=== PATIENT | female | born 1965 | race Caucasian/White ===

== ENCOUNTER → 2016-10-09 | Outpatient (REF) | payer BC ==
[~2016-10-09] MED LIST: ALLE60TA69 PO; ATOR1TAB21 PO; BIOT1TAB PO; CALC600T21 PO; FLUTISP; METF500T4 PO; METR0.00 TOP; OMEP40CA2 PO; VIVE0.02 TD
== END ==
LOC: M SFHCCLAY 07:58
PROVIDERS: ATTEND Family Medicine
DX: E78.00 Pure hypercholesterolemia, unspecified (principal)

== ENCOUNTER → 2016-11-29 | Outpatient (REF) | payer BC | LOC: M SFHCCLAY 09:23 | PROVIDERS: ATTEND Family Medicine | DX: E78.00 Pure hypercholesterolemia, unspecified (principal) ==

== ENCOUNTER → 2017-01-15 | Outpatient (REF) | payer BC ==
[2017-01-15 14:21] LABS: FREE T4 0.96 NG/DL (0.76-1.46)
== END ==
LOC: M SFHCCLAY 08:18
PROVIDERS: ATTEND Family Medicine
DX: E55.9 Vitamin D deficiency, unspecified (principal); E11.9 Type 2 diabetes mellitus without complications

== ENCOUNTER → 2017-04-17 | Outpatient (REF) | payer BC ==
[~2017-04-17] MED LIST changes: -CALC600T21 PO; +CALC600T60 PO
== END ==
LOC: M SFHCCLAY 08:36
PROVIDERS: ATTEND Family Medicine
DX: E11.9 Type 2 diabetes mellitus without complications (principal)

== ENCOUNTER → 2017-11-13 | Outpatient (REF) | payer BC ==
[2017-11-13 17:21] LABS: ANION GAP 6 MEQ/L (8-16); BLOOD UREA NITROGEN 19 MG/DL (7-18); CALCIUM LEVEL 8.9 MG/DL (8.5-10.1); CARBON DIOXIDE LEVEL 30 MEQ/L (21-32); CHLORIDE LEVEL 105 MEQ/L (98-107); GLOMERULAR FILTRATION RATE > 60.0 (>51); GLUCOSE, FASTING 98 MG/DL (70-100); POTASSIUM SERUM 4.4 MEQ/L (3.5-5.1); SODIUM LEVEL 141 MEQ/L (136-145)
[2017-11-13 19:29] LABS: ESTIMATED AVERAGE GLUCOSE 137 MG/DL (60-110); HEMOGLOBIN A1c 6.4 %
== END ==
LOC: M SFHCCLAY 11:32
DX: Z01.818 Encounter for other preprocedural examination (principal); E11.9 Type 2 diabetes mellitus without complications

== ENCOUNTER → 2018-04-14 | Outpatient (REF) | payer BC ==
[2018-04-14 11:55] LABS: ANION GAP 8 MEQ/L (8-16); BLOOD UREA NITROGEN 19 MG/DL (7-18); CALCIUM LEVEL 8.9 MG/DL (8.5-10.1); CARBON DIOXIDE LEVEL 29 MEQ/L (21-32); CHLORIDE LEVEL 104 MEQ/L (98-107); CHOLESTEROL LEVEL 163 MG/DL (<200); CHOLESTEROL RISK RATIO 4.075 (<5); CREATININE FOR GFR 0.98 MG/DL (0.55-1.30); GLOMERULAR FILTRATION RATE > 60.0 (>51); GLUCOSE, FASTING 146 MG/DL (70-100); HDL CHOLESTEROL 40 MG/DL (>40); LDL CHOLESTEROL 85.6 MG/DL (<100); NON-HDL-C 123 MG/DL; POTASSIUM SERUM 4.2 MEQ/L (3.5-5.1); SODIUM LEVEL 141 MEQ/L (136-145); TRIGLYCERIDES LEVEL 187 MG/DL (<150)
[2018-04-14 11:57] LABS: MALB URINE SIEMENS < 5.0 MG/L; MAU/CREAT RATIO 20.8 MCG/MG (0.0-30.0)
[2018-04-14 12:25] LABS: ESTIMATED AVERAGE GLUCOSE 134 MG/DL (60-110); HEMOGLOBIN A1c 6.3 %
== END ==
LOC: M SFHCCLAY 08:07
DX: Z01.818 Encounter for other preprocedural examination (principal); E11.9 Type 2 diabetes mellitus without complications; E78.5 Hyperlipidemia, unspecified
CPT/HCPCS: 83036

== ENCOUNTER → 2018-08-12 | Outpatient (REF) | payer BC ==
[2018-08-12 11:52] LABS: ALBUMIN 4.3 GM/DL (3.2-5.2); ANION GAP 9 MEQ/L (8-16); BLOOD UREA NITROGEN 18 MG/DL (7-18); CALCIUM LEVEL 9.2 MG/DL (8.5-10.1); CARBON DIOXIDE LEVEL 29 MEQ/L (21-32); CHLORIDE LEVEL 104 MEQ/L (98-107); CREATININE FOR GFR 0.85 MG/DL (0.55-1.30); GLOMERULAR FILTRATION RATE > 60.0 (>51); GLUCOSE, FASTING 118 MG/DL (70-100); PHOSPHORUS LEVEL 3.1 MG/DL (2.5-4.9); POTASSIUM SERUM 4.9 MEQ/L (3.5-5.1); SODIUM LEVEL 142 MEQ/L (136-145)
[2018-08-12 12:18] LABS: ESTIMATED AVERAGE GLUCOSE 128 MG/DL (60-110); HEMOGLOBIN A1c 6.1 %
== END ==
LOC: M SFHCCLAY 08:25
DX: E11.9 Type 2 diabetes mellitus without complications (principal)
CPT/HCPCS: 80069

== ENCOUNTER → 2019-02-23 | Outpatient (CLI) | payer BC ==
[~2019-02-23] MED LIST changes: +FLUT50SP12; -FLUTISP
--- NOTE | 2019-02-23 13:51 | REP ---
RIGHT WRIST SERIES: Two views. HISTORY: Right wrist pain. FINDINGS: AP and lateral views of the right wrist demonstrate overall normal mineralization. 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 Bones, joints and soft tissues are otherwise unremarkable. IMPRESSION: Spurring in the distal radial ulnar joint. No acute bony abnormality.
== END ==
LOC: M CLY 10:48
PROVIDERS: ATTEND Family Medicine
DX: M19.031 Primary osteoarthritis, right wrist (principal); E11.9 Type 2 diabetes mellitus without complications

== ENCOUNTER → 2019-06-02 | Outpatient (REF) | payer BC ==
[~2019-06-02] MED LIST changes: +METF-791 PO; -METF500T4 PO
[2019-06-02 11:34] LABS: ALT/SGPT 35 U/L (12-78); BLOOD UREA NITROGEN 18 MG/DL (7-18); CALCIUM LEVEL 9.2 MG/DL (8.5-10.1); CARBON DIOXIDE LEVEL 29 MEQ/L (21-32); CHLORIDE LEVEL 105 MEQ/L (98-107); CHOLESTEROL LEVEL 146 MG/DL (<200); CHOLESTEROL RISK RATIO 3.173 (<5); CREATININE FOR GFR 0.79 MG/DL (0.55-1.30); GLOMERULAR FILTRATION RATE > 60.0 (>51); GLUCOSE, FASTING 128 MG/DL (70-100); HDL CHOLESTEROL 46 MG/DL (>40); LDL CHOLESTEROL 76 MG/DL (<100); NON-HDL-C 100 MG/DL; POTASSIUM SERUM 4.5 MEQ/L (3.5-5.1); SODIUM LEVEL 143 MEQ/L (136-145); TRIGLYCERIDES LEVEL 121 MG/DL (<150)
[2019-06-02 11:46] LABS: HEMOGLOBIN A1c 6.1 %
== END ==
LOC: M SFHCCLAY 07:52
PROVIDERS: ATTEND Family Medicine
DX: E11.9 Type 2 diabetes mellitus without complications (principal)

== ENCOUNTER → 2019-11-22 | Outpatient (REF) | payer BC ==
[~2019-11-22] MED LIST changes: -OMEP40CA2 PO; +OMEP40CA97 PO
[2019-11-22 11:42] LABS: ALT/SGPT 37 U/L (12-78); BLOOD UREA NITROGEN 19 MG/DL (7-18); CARBON DIOXIDE LEVEL 31 MEQ/L (21-32); CHLORIDE LEVEL 105 MEQ/L (98-107); CHOLESTEROL LEVEL 204 MG/DL (<200); CHOLESTEROL RISK RATIO 4.744 (<5); CREATININE FOR GFR 0.83 MG/DL (0.55-1.30); FREE T4 1.02 NG/DL (0.76-1.46); GLOMERULAR FILTRATION RATE > 60.0 (>51); GLUCOSE, FASTING 129 MG/DL (70-100); HDL CHOLESTEROL 43 MG/DL (>40); LDL CHOLESTEROL 131 MG/DL (<100); NON-HDL-C 161 MG/DL; SODIUM LEVEL 140 MEQ/L (136-145); TRIGLYCERIDES LEVEL 150 MG/DL (<150)
[2019-11-22 13:44] LABS: HEMOGLOBIN A1c 6.4 %
== END ==
LOC: M SFHCCLAY 08:33
PROVIDERS: ATTEND Family Medicine
DX: E11.9 Type 2 diabetes mellitus without complications (principal); G56.02 Carpal tunnel syndrome, left upper limb; E78.5 Hyperlipidemia, unspecified

== ENCOUNTER → 2020-01-13 | Outpatient (REF) | payer OTHER ==
[2020-01-13 12:48] LABS: CORTISOL AM 21.1 UG/DL (4.3-22.4); FREE T4 0.94 NG/DL (0.76-1.46); THYROID STIMULATING HORMONE 2.85 uIU/ML (0.358-3.740); TOTAL 25(OH) VITAMIN D 20.5 NG/ML (30.0-100.0)
[2020-01-14 08:04] LABS: THYROID PEROXIDASE ANTIBODY 31.7 U/ML (<60.0)
== END ==
LOC: M LABDRAW1 11:43
PROVIDERS: ATTEND Nurse Practitioner Family
DX: E04.9 Nontoxic goiter, unspecified (principal); L65.9 Nonscarring hair loss, unspecified; E55.9 Vitamin D deficiency, unspecified

== ENCOUNTER → 2020-05-17 | Outpatient (REF) | payer OTHER ==
[~2020-05-17] MED LIST changes: -METF-791 PO; +METF-838 PO
[2020-05-17 20:50] LABS: HEMOGLOBIN A1c 6.3 %
== END ==
LOC: M LABDRAWC 15:44
PROVIDERS: ATTEND Family Medicine
DX: E11.9 Type 2 diabetes mellitus without complications (principal); E55.9 Vitamin D deficiency, unspecified

== ENCOUNTER → 2020-06-21 | Outpatient (REF) | payer OTHER ==
[2020-06-21 14:18] LABS: AMORPHOUS SEDIMENT SMALL (NEGATIVE); APPEARANCE, URINE CLOUDY (CLEAR); BACTERIA, URINE AUTO NEGATIVE (NEGATIVE); BILIRUBIN, URINE AUTO NEGATIVE (NEGATIVE); BLOOD, URINE BLOOD NEGATIVE (NEGATIVE); COLOR, URINE AMBER (YELLOW); GLUCOSE, URINE (UA) AUTO NEGATIVE (NEGATIVE); KETONE, URINE AUTO NEGATIVE (NEGATIVE); LEUKOCYTE ESTERASE, URINE AUTO NEGATIVE (NEGATIVE); NITRITE, URINE AUTO NEGATIVE (NEGATIVE); PROTEIN, URINE AUTO NEGATIVE (NEGATIVE); RBC, URINE AUTO 0 /HPF (0-3); SPECIFIC GRAVITY URINE AUTO 1.014 (1.002-1.035); SQUAMOUS EPITHELIAL CELL UR AU 0 /HPF (0-6); UROBILINOGEN, URINE AUTO 0.2 mg/dL (0.0-2.0); WBC, URINE AUTO 0 /HPF (0-3)
== END ==
LOC: M LAB REF 13:16
PROVIDERS: ATTEND Physician Assistant
DX: N39.0 Urinary tract infection, site not specified (principal)

== ENCOUNTER → 2020-09-20 | Outpatient (REF) | payer OTHER | LOC: M LABDRAWC 13:19 | PROVIDERS: ATTEND Family Medicine | DX: E11.9 Type 2 diabetes mellitus without complications (principal); I10 Essential (primary) hypertension ==

== ENCOUNTER → 2020-11-01 | Outpatient (CLI) | payer OTHER | LOC: M LABSMTC 13:34 | PROVIDERS: ATTEND Family Medicine | DX: Z20.822 Contact with and (suspected) exposure to COVID-19 (principal) ==

== ENCOUNTER → 2021-08-29 | Outpatient (CLI) | payer OTHER ==
[~2021-08-29] MED LIST changes: +BIMA01SOL OU; +CENT1TAB9 PO; +CHLO125TA PO; +ESTR1TD TD; +FLUT15.820; +METR0.7533 TOP; +OMEP40CA4 PO; -OMEP40CA97 PO; +VITA1CAP14 PO
== END ==
LOC: M LABSMTC 09:54
PROVIDERS: ATTEND Anesthesiology
DX: Z01.818 Encounter for other preprocedural examination (principal); Z11.52 Encounter for screening for COVID-19

== ENCOUNTER 2021-09-03 10:46 | Day surgery (SDC) | payer OTHER ==
[~2021-09-03] VITALS: Ht 154.9 cm; Wt 75.7 kg
[~2021-09-03 10:46] MED LIST changes: +LIDOCAINE 2% 100MG/5ML SDV (FOR ANES.) As Ordered ONE; +NS 1,000 ML IV ONE; +propofoL 200 MG/20 ML VIAL As Ordered ONE
--- OUTSIDE RECORDS SUMMARY | 2021-09-03 10:52 | CCD ---
Author Author Julien Flynn MD [facility] Organization Julien Flynn MD [facility] Address [address] [address] Phone Care Team Providers Care Assistant Professor Of Communication Name Role Phone Jeffery Allen Unavailable [phone] Rina DYER, Julien COATES Unavailable [phone] Jeff Lira MD PP [phone] Reason for Referral No Reason for Referral Recorded Problems Includes: Active, inactive, and resolved Problems All Visits Onset Date - Time Resolved Date - Time Provider Co ndition Status Refractive Error - Myopia Left 01/05/2019 - 12:00AM Dane Welsh DO Active Refractive Error - Myopia Bilateral 08/10/2018 - 12:00AM Kevyn Welsh DO Inactive Taking Medication For Diabetes Long-term Use of Oral H ypoglycemics 07/16/2018 - 12:00AM Julien Flynn MD, AMINATA Active Diabetes Mellitus Type 2 - Uncomplicated, Controlled 07/16/2018 - 12:00AM Julien Flynn MD, AMINATA Active Retinopathy Hypertensive Both Eyes 07/16/2018 - 12:00AM Julien Flynn MD, FACS Active Dry Eye Syndrome Both Eyes 07/16/2018 - 12:00AM Julien Flynn MD, FACS Active Vitreous Disorders Degeneration 07/16/2018 - 12:00AM Julien Flynn MD, FACS Active Plan of Treatment Future Appointments Date Time Location Provider REFRACTION 08/20/2021 8:00AM Julien Flynn MD [facility] 24-2 08/20/2021 8:00AM [facility] WITH PACHYMETRY 08/20/2021 8:00AM [facility] Assessments Includes: Assessments for all patient encounters Findings Encounter Date Dry eye syndrome of both eyes 1 Year Follow-Up with Herve Flynn MD, FACS 07/21/2020 Hypertensive retinopathy of both eyes 1 Year Follow-Up with Julien Flynn MD, FACS 07/21/2020 Long-term use of oral hypoglycemics 1 Year Follow-Up w [facility] Julien Flynn MD, FACS 07/21/2020 Type 2 diabetes mellitus - uncomplicated, controlled 1 Year Follow-Up with Julien Flynn MD, FACS 07/21/2020 Vitreous degeneration 1 Year Follow-Up with Julien joya MD, FACS 07/21/2020 Hypertensive retinopathy of both eyes 1 Year Follow-Up with Julien Flynn MD, FACS 07/23/2019 Long-term use of oral hypoglycemics 1 Year Follow-Up w [facility] Julien Flynn MD, FACS 07/23/2019 Type 2 diabetes mellitus - uncomplicated, controlled 1 Year Follow-Up with Julien Flynn MD, FACS 07/23/2019 Left myopia 3 Month Follow-Up with Kevyn Welsh DO 01/05/2019 Bilateral myopia PRE OP VISIT with Kevyn Welsh DO 1 10/24/2017 Bilateral myopia EVALUATION FOR PRK SURGERY with Kevyn Welsh DO 08/12/2018 Bilateral myopia LASER EVALUATION with Kevyn Welsh DO 08/07/2018 Dry eye syndrome of both eyes NEW PATIENT WITH REFERRA L with Julien Flynn MD, FACS 07/16/2018 Hypertensive retinopathy of both eyes NEW PATIENT WITH REFERRAL with Julien Flynn MD, FACS 07/16/2018 Long-term use of oral hypoglycemics NEW PATIENT WITH R EFERRAL with Julien Flynn MD, FACS 07/16/2018 Type 2 diabetes mellitus - uncomplicated, controlled N EW PATIENT WITH REFERRAL with Julien Flynn MD, FACS 07/16/2018 Vitreous degeneration NEW PATIENT WITH REFERRAL [facility] Julien Flynn MD, FACS 07/16/2018 Instructions Instructions not supported for this document typeNo Instructions Recorded Medical Equipment - Implanted Devices Includes: Current and historical DevicesNo Medical Equipment Recorded Medications Includes: Current and historical Medications Current Medications (continue as prescribed) Vitamin D3 250 MCG (79700 UT) Oral Tablet 07/21/2020 Provider: Diagnosis: NexIUM 24HR 20 MG Oral Capsule Delayed Release 07/21/2020 Provider: Diagnosis: Atorvastatin 10 mg Oral Tablet 07/21/2020 Provider: Diagnosis: Vivelle-Dot 0.05 MG/24HR Transdermal Patch Twice Weekly 06/30 Provider: Diagnosis: one patch twice a week Phentermine HCl 30 MG Oral Capsule 07/21/2020 Provi eligio: Diagnosis: B Complex Oral Tablet 07/21/2020 Provider: Diagnosis: Relacore Oral Tablet 07/16/2018 Provider: Diagnosis: Centrum Silver Oral Tablet 07/16/2018 Provider: Diagnosis: Fluticasone Propionate 50MCG/ACT Nasal Suspension 07/16/2018 Provider: Diagnosis: 1 spray each nostril Loratadine D Oral Tablet 07/16/2018 Provider: Diagnosis: Lutein 10MG Oral Tablet 07/16/2018 Provider: Diagnosis: Zantac 150MG Oral Tablet 07/16/2018 Provider: Diagnosis: Pravastatin Sodium 40MG Oral Tablet 07/16/2018 Prov ider: Diagnosis: MetFORMIN HCl ER 500MG Oral Tablet Extended Release 24 Hour 07/16/2018 Provider: Diagnosis: Past Medications on file Pred Forte 1% Ophthalmic Suspension 11/02/2018 - 07/23/2019 Provider: Kevyn Welsh DO Diagnosis: one drop two times a day in the right ey e until 11/06 then one drop once a day in the right eye for 2 weeks then stop Vigamox 0.5% Ophthalmic Solution 08/27/2018 - 09/01/2018 Pro vider: Kevyn Welsh DO Diagnosis: one drop four times a day in the right eye for 1 week Valium 2MG Oral Tablet 08/24/2018 - 09/01/2018 Provider: Kevyn Welsh DO Diagnosis: 1/2 tablet take 30 minutes prior to procedure Tylenol with Codeine #3 300-30MG Oral Tablet 08/24/2018 - Provider: Kevyn Welsh DO Diagnosis: one tablet every 4 hours as needed for pain Lyrica 100MG Oral Capsule 08/24/2018 - 09/01/2018 Provider: Kevyn Welsh DO Diagnosis: 1 tablet three times a day starting 2 days before Vigamox 0.5% Ophthalmic Solution 08/24/2018 - 08/27/2018 Pro vider: Kevyn Welsh DO Diagnosis: one drop four times a day in the right eye Pred Forte 1% Ophthalmic Suspension 08/24/2018 - 11/02/2018 Provider: Kevyn Welsh DO Diagnosis: one drop eight times a day in the right eye Medications Administered Includes: Administered Medications in patient's chartNo Administered Medications Recorded Vital Signs Includes: Vital Signs from 08/20/2020 through 08/20/2021No Vital Signs Recorded For Specified Dates Results Includes: Results from 08/20/2020 through 08/20/2021No Results Recorded For Specified Dates History of Present Illness History of Present Illness not supported for this document typeNo History of Present Illness Recorded Social History Description Last Updated Alcohol 07/23/2019 No tobacco use 07/23/2019 Not using drugs 07/23/2019 Previous smoking history 07/23/2019 Smoking status : Former smoker 07/23/2019 Procedures and Surgical History Surgical History Last Updated Surgical / procedural history Partial H ysterectomy 1990, Ovarian Cyst removal 1994 and 2002, Kidney Stone removal 2003 and 2008, Total Hysterectomy 2014 and 2017, Blepharoplasty on both lids in 2014 with a lower eye laser procedure - Dr. Keene. Carpel Tunnel sx-07/20/2019 07/23/2019 History of LASIK surgery of the right cornea PRK OD b y Dr. Welsh 08/26/18 07/23/2019 Medical History Includes: Medical History in patient's chart Description Last Updated History of the retina was abnormal 07/23/2019 07/21/20 20 Recent change in medical history Carpel Tunnel Sx 07/23/2019 History of diabetes mellitus Her last A1c 6.1 FBS simon s not check 07/23/2019 History of hyperlipidemia 07/23/2019 Reported medical history Gestational Diabetes 1985+19 89, 07/23/2019 Currently wearing eyeglasses 07/23/2019 History of fundoscopic exam through dilated pupils was performed 07/16/2018 07/23/2019 Wearing contact lenses 07/23/2019 Family History Includes: Family History in patient's chart Description Last Updated Fraternal history of hypertension 07/23/2019 Maternal history of arthritis 07/23/2019 Maternal history of cataract 07/23/2019 Maternal history of diabetes mellitus 07/23/2019 Maternal history of glaucoma 07/23/2019 Maternal history of heart disease 07/23/2019 Maternal history of thyroid disorder 07/23/2019 Paternal history of family history of cancer 9 Paternal history of heart disease 07/23/2019 Paternal history of hypertension 07/23/2019 Sororal history of arthritis 07/23/2019 Sororal history of family history of cancer 07/23/2019 Sororal history of glaucoma 07/23/2019 Sororal history of thyroid disorder 07/23/2019 Review of Systems Review of Systems not supported for this document typeNo Review of Systems Recorded Mental Status Mental Status not supported for this document typeNo Mental Status Recorded Functional Status Functional Status not supported for this document typeNo Functional Status Recorded Physical Exam Physical Exam not supported for this document typeNo Physical Exam Recorded Immunizations Includes: Immunizations in patient's chartNo Immunizations Recorded Allergies Includes: Active, inactive, and resolved AllergiesNo Known Allergies Encounters Includes: Encounters from 08/20/2020 through 08/20/2021 Encounter Provider Location Date Check-In Time Check-Out Time D iagnosis 1 Year Follow-Up Julien Flynn MD, FACS Julien Bonilla [facility] 07/17/2021 8:03AM 9:14AM Insurance Includes: Active Insurance Policies Plan Name Member ID Group # Subscriber Relationship Effective Da con 1 - [employer] /[employer] NEEDED [id number] Martha Diggs Self Advance Directives Includes: Current Advance DirectivesNo Advance Directives Recorded Health Concerns Includes: Active Health ConcernsNo Active Health Concerns Recorded Goals Includes: Active GoalsNo Active Goals Recorded Interventions Includes: Interventions for active GoalsNo Interventions Recorded Evaluations & Outcomes Includes: Evaluations & Outcomes for active GoalsNo Outcomes Recorded
--- OUTSIDE RECORDS SUMMARY | 2021-09-03 10:52 | CCD ---
Author Author Julien Flynn MD [facility] Organization Julien Flynn MD [facility] Address [address] [address] Phone Care Team Providers Care Cuff Turner Name Role Phone Jeffery Allen Unavailable [phone] Rina DYER, AMINATA, Julien Wang Unavailable [phone] Jeff Lira MD PP [phone] Reason for Referral No Reason for Referral [...] ypoglycemics 07/16/2018 - 12:00AM Julien Flynn MD, FACS Active Diabetes Mellitus Type 2 - Uncomplicated, Controlled 07/16/2018 - 12:00AM Julien Flynn MD, FACS Active Retinopathy Hypertensive Both Eyes 07/16/2018 - 12:00AM Julien Flynn MD, FACS Active Dry Eye Syndrome Both Eyes 07/16/2018 - 12:00AM Julien Flynn MD, FACS Active Vitreous Disorders Degeneration 07/16/2018 - 12:00AM Julien Flynn MD, FACS Active Plan of Treatment Future Appointments Date Time Location Provider 1 Year Follow-Up 07/17/2021 8:00AM Julien Flynn MD [facility] Julien Flynn MD, FACS Assessments Includes: Assessments for all patient encounters Findings Encounter Date Dry eye syndrome of both eyes 1 Year Follow-Up with Herve Flynn MD, FACS 07/21/2020 Hypertensive retinopathy of both eyes 1 Year Follow-Up with Julien Flynn MD, FACS 07/21/2020 Long-term use of oral hypoglycemics 1 Year Follow-Up w [facility] Julien Flynn MD, FACS 07/21/2020 Type 2 diabetes mellitus - uncomplicated, controlled 1 Year Follow-Up with Julien Flynn MD, FACS 07/21/2020 Vitreous degeneration 1 Year Follow-Up with Julien joya MD, FACS 07/21/2020 Hypertensive retinopathy of both eyes 1 Year Follow-Up with Julien Flynn MD, FACS 07/23/2019 Long-term use of oral hypoglycemics 1 Year Follow-Up w [facility] Julien Flynn MD, FACS 07/23/2019 Type 2 [...] WITH REFERRA L with Julien Flynn MD[facility] 07/16/2018 Hypertensive retinopathy of both eyes NEW PATIENT WITH REFERRAL with Julien Flynn MD, FACS 07/16/2018 Long-term use of oral hypoglycemics NEW PATIENT WITH R EFERRAL with Julien Flynn MD, FACS 07/16/2018 Type 2 diabetes mellitus - uncomplicated, controlled N EW PATIENT WITH REFERRAL with Julien Flynn MD, FACS 07/16/2018 Vitreous degeneration NEW PATIENT WITH REFERRAL wi Julien Flynn MD, FACS 07/16/2018 Instructions Instructions not supported for this document typeNo Instructions Recorded Medical Equipment - Implanted Devices Includes: Current and historical DevicesNo Medical Equipment Recorded Medications Includes: Current and historical Medications Current Medications (continue as prescribed) Vitamin D3 250 MCG (22445 UT) Oral Tablet 07/21/2020 Provider: Diagnosis: NexIUM [...] Recorded Vital Signs Includes: Vital Signs from 06/26/2020 through 06/26/2021No Vital Signs Recorded For Specified Dates Results Includes: Results from 06/26/2020 through 06/26/2021No Results Recorded For Specified Dates History of Present Illness History of Present Illness not supported for this document typeNo History of Present Illness Recorded Social History Description Last Updated No consumption of alcohol 07/21/2020 No tobacco use 07/21/2020 Not using drugs 07/21/2020 Previous smoking history 07/21/2020 Smoking status : Former smoker 07/21/2020 Procedures and Surgical History Includes: Procedures from 06/26/2020 through 06/26/2021 Procedures Code Diagnosis Performing Provider Service Location Service Date Intermediate Eye Exam Established Patient [address] alf (current) use of oral hypoglycemic drugs Julien Flynn MD, FACS Julien Flynn MD [facility] 07/21/2020 Surgical History Last Updated History of LASIK surgery of the right cornea PRK OD b y Dr. Welsh 08/26/18 07/21/2020 Surgical / procedural history Partial H ysterectomy 1990, Ovarian Cyst removal 1994 and 2002, Kidney Stone removal 2003 and 2008, Total Hysterectomy 2014 and 2017, Blepharoplasty on both lids in 2014 with a lower eye laser procedure - Dr. Keene. Carpel Tunnel sx-07/20/2019 07/21/2020 Medical History Includes: Medical History in patient's chart Description Last Updated History of diabetes mellitus Her last A 1c 6.[address] Lira in May FBS: 106 two weeks ago 07/21/2020 No recent change in medical history 07/21/2020 History of the retina was abnormal 07/23/2019 07/21/20 20 Currently wearing eyeglasses 07/21/2020 History of hyperlipidemia 07/21/2020 Family History Includes: Family History in patient's chart Description Last Updated Fraternal history of hypertension 07/21/2020 Maternal history of arthritis 07/21/2020 Maternal history of cataract 07/21/2020 Maternal history of diabetes mellitus 07/21/2020 Maternal history of glaucoma 07/21/2020 Maternal history of heart disease 07/21/2020 Maternal history of thyroid disorder 07/21/2020 Paternal history of family history of cancer 0 Paternal history of heart disease 07/21/2020 Paternal history of hypertension 07/21/2020 Sororal history of arthritis 07/21/2020 Sororal history of family history of cancer 07/21/2020 Sororal history of glaucoma 07/21/2020 Sororal history of thyroid disorder 07/21/2020 Review of Systems Review of Systems not supported for this document typeNo Review of Systems Recorded Mental Status Mental Status not supported for this document type Description Oriented to time, place, and person Functional Status Functional Status not supported for this document typeNo Functional Status Recorded Physical Exam Physical Exam not supported for this document typeNo Physical Exam Recorded Immunizations Includes: Immunizations in patient's chartNo Immunizations Recorded Allergies Includes: Active, inactive, and resolved AllergiesNo Known Allergies Encounters Includes: Encounters from 06/26/2020 through 06/26/2021 Encounter Provider Location Date Check-In Time Check-Out Time D iagnosis 1 Year Follow-Up Julien Flynn MD, FACS Julien Bonilla [facility] 07/21/2020 8:03AM 9:03AM Taking Medication Fo r Diabetes Long-term Use of Oral Hypoglycemics, Diabetes Mellitus Type 2 - Uncomplicated, Controlled, Retinopathy Hypertensive Both Eyes, Dry Eye Syndrome Both Eyes, Vitreous Disorders Degeneration Insurance Includes: Active Insurance Policies Plan Name Member ID Group # Subscriber Relationship Effective Da con 1 - [employer] /PRIOR [employer] NEEDED [id number] Martha Diggs Self Advance Directives Includes: Current Advance DirectivesNo Advance Directives Recorded Health Concerns Includes: Active Health ConcernsNo Active Health Concerns Recorded Goals Includes: Active GoalsNo Active Goals Recorded Interventions Includes: Interventions for active GoalsNo Interventions Recorded Evaluations & Outcomes Includes: Evaluations & Outcomes for active GoalsNo Outcomes Recorded
--- OUTSIDE RECORDS SUMMARY | 2021-09-03 10:52 | CCD ---
Author Author [facility] Organization [facility] Address Unknown Phone Unavailable Care Team Providers Care General Activities Therapist Name Role Phone Jeff Lira Unavailable PROBLEMS Type Condition ICD9-CM Code [id number] Code Onset Dates Condition S tatus W/U Status Risk SNOMED Code Notes Problem Needs flu shot Z23 Active confirmed 05526 3001 Problem Other and unspecified hyperlipidemia E78.5 Act lashonda confirmed 28562570 Problem Hypovitaminosis D E55.9 Active confirmed 34 156676 Problem Chronic GERD K21.9 Active confirmed 2850106 09 Problem Chronic allergic rhinitis, unspecified s easonality, unspecified trigger J30.9 Active confirmed 28676959 Problem Carpal tunnel syndrome of left wrist G56.02 Act lashonda confirmed [id number] Problem Diabetes mellitus E11.9 Active confirmed 73 721715 Problem Essential (primary) hypertension I10 Active conf irmed 66607069 Problem Family history of colon cancer Z80.0 Active confir med 889978205 Problem Rectocele N81.6 Active confirmed 086447593 Problem BMI 31.0-31.9,adult Z68.31 Active confirmed 206492648 Problem Radiculopathy affecting upper extremity M54.10 Active confirmed 34486485 Problem Carpal tunnel syndrome of right wrist G56.01 Ac tive confirmed [id number] ALLERGIES No Known Allergies ENCOUNTERS from 1965 to 2021-08-22 Encounter Location Date Provider Diagnosis [facility] [phone] [place] [address] Jul, Jfef Lira Facial discomfort R51.9 IMMUNIZATIONS Vaccine Route Administration Date Status Influenza 18 yrs & older Flublok IM Intramuscular Aug 12, 2018 Administered Hepatitis B 0.5mL HEPLISAV-B IM Intramuscular March 16, 2019 Ad ministered Hepatitis B 0.5mL HEPLISAV-B IM Intramuscular February 12, 2019 Ad ministered Hepatitis A Adult 1.0mL Havrix IM Intramuscular January 19, 2021 Administered Pneumococcal Adult 0.5mL Pneumovax 23 IM Intramuscular Aug 09 014 Administered TDAP 0.5mL (Boostrix) IM Intramuscular January 15, 2017 Administe red Influenza 18 yrs & older Flublok IM Intramuscular Aug 02, 2019 Administered Influenza 6mo & up Fluzone IM Intramuscular Aug 07, 2017 Admi nistered Influenza Pharmacy Given Unknown Aug 16, 2020 Adminis tered Influenza 6mo & up Fluzone IM Intramuscular Jun 19, 2016 Admi nistered Influenza 6mo & up Fluzone IM Intramuscular Aug 01, 2015 Admi nistered SOCIAL HISTORY Tobacco Use: Social History Observation Description Date Details (start date - stop date) Never Smoker Sex Assigned At : Social History Observation Description Sex Assigned At Unknown Audit Question Answer Notes Total Score: 1 Interpretation: Alcohol Education Quaker: Question Answer Notes Quaker No islam beliefs that would impact health care. Sexual Hx: Question Answer Notes Had sex in the last 12 months (vaginal, oral, or anal)? Yes LMP: hysterectomy Have you ever had an STD? No with Men only Use protection? No Drug and Alcohol Question Answer Notes Total Score: 0 Interpretation: No problems reported Alcohol Screening: Question Answer Notes Did you have a drink containing alcohol in the past year? Ye s Points 1 Interpretation Negative How often did you have six or more drinks on one occas ion in the past year? Never (0 points) How many drinks did you have on a typica l day when you were drinking in the past year? 1 or 2 (0 points) How often did you have a drink containing alcohol in t he past year? Monthly or less (1 point) BMI Care Goal Follow-Up Question Answer Notes Above Normal BMI Follow-Up BMI=30.93 Tobacco Use: Question Answer Notes Are you a: never smoker former smoker quit a ge 23 REASON FOR REFERRAL from 1963 to 2021-08-22 Reason patient with discomfort refe rrable to sinus area please eval and treat. Diagnosis 1 Facial discomfort (R51.9) Referral Organization [facility] Referring Provider First Name Jeff Referring Provider Last Name Pankaj Referring Provider Specialty Family Medicine Referred Provider Tyler BAILEY Referred Provider Specialty Otolaryngology Referral Priority Routine VITAL SIGNS No information MEDICATIONS Medication SIG (Take, Route, Frequency, Duration) Notes Start Da te End Date Status OneTouch Test - as directed In Vitro, E11.Jul, Active Glucostix freestyle lite --- subcutaneously bid prn- E11.9 Nov, Active Estradiol 0.1 MG/24HR 1 patch to skin Transdermal Two times a Week for 90 day(s) Jul, Active Omeprazole 40 MG 1 capsule 30 minutes before morning meal Orally On a day Active Chlorthalidone 25 MG 1 tablet in the morning with food Orally Once a day for 90 day(s) Feb, Active B Complex - as directed Orally Activ e CoursePeer Basic System w/Device 1 .Jul, Active Motrin Active Atorvastatin Calcium 10 MG 1 tablet Orally Once a day for 90 Active metFORMIN HCl ER 500 MG 2 tablet Orally bid for 90 Active Flonase 50 MCG/DOSE 1 spray in each nostril Nasally Once a day prn Active Alcohol Preps --- --- --- as directed Nov, Active Loratadine-D 12HR 5-120 MG 1 tablet as needed Orally every 12 hrs Active Lancets freestyle lite ---- subcutaneously as directedBID- Active May Use - fully automatic bp cuff Dx I10 Aug, Active Liquid Tears Active Biotin Ultra Strength Act lashonda Centrum Silver 50+Women - as directed Orally Active Glucometer ---- as directed ---- as directed Nov, Active PROCEDURES No Information RESULTS No Results REASON FOR VISIT Referral to ENT Provider MEDICAL (GENERAL) HISTORY Type Description Date Medical History Hx kidney Stone Medical History GERD Medical History Post menopausal Medical History HISTORY OF GESTATIONAL DIABETES Medical History Family history of diabetes mellitus Medical History Family history of other cardiovascular d iseases Medical History ELEVATED LIVER FUNCTION NEG HEP SCRN- Medical History DM type 2 Medical History Esophageal reflux Medical History Seasonal/ Enviromental Allergies Surgical History Child x 2 1984,1988 Surgical History Hysterectomy 1991 Surgical History Ovarian cyst 09/2010 Surgical History Left Ureteroscopy/laser Lithotripsy/JJ s tent placement x2 2004 Surgical History ESWL Surgical History Kidney stone 11/2010 Surgical History ANTERIOR POSTERIOR REPAIR Surgical History upper and lower BLEPH 02/2015 Surgical History posterior repair 10/2017 Surgical History eye surgery 08/15/2018 Surgical History Carpal tunnel right 07/20/2019 Hospitalization History Surgery Hospitalization History childbirth Goals Section No Information Health Concerns No Information MEDICAL EQUIPMENT No Information MENTAL STATUS No Information FUNCTIONAL STATUS No Information ASSESSMENTS Encounter Date Diagnosis Assessment Notes Treatment Notes Treatm ent Clinical Notes Jul, Facial discomfort (ICD-10 - R51.9) PLAN OF TREATMENT Medication Medication Name Sig Start Date Stop Date Estradiol 0.1 MG/24HR 1 patch to skin Transdermal Two times a Week for 90 day(s) Jul, Referrals Referral Date Details patient with discomfort refe rrable to sinus area please eval and treat., Tyler P ENT Next Appt Details Provider Name:Jeff Zamorah, 2021-09-20 01 :00:00 PM, [address] , , [place], [address], Insurance Providers Payer Name Payer Address Payer Phone Insured Name Patient Relati onship to Insured Coverage Start Date Coverage End Date [facility] [address] [address] [facility] [id number] [place]AR[place]
--- OUTSIDE RECORDS SUMMARY | 2021-09-03 10:52 | CCD ---
Author Author [facility] Organization 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 Role Phone Oren Beal Unavailable PROBLEMS Type Condition ICD9-CM Code [id number] Code Onset Dates Condition S tatus W/U Status Risk SNOMED Code Notes Problem Needs flu shot Z23 Active confirmed 65783 3001 Problem Other and unspecified hyperlipidemia E78.5 Act lashonda confirmed 57709578 Problem Hypovitaminosis D E55.9 Active confirmed 34 111637 Problem Chronic GERD K21.9 Active confirmed 5060166 09 Problem Chronic allergic rhinitis, unspecified s easonality, unspecified trigger J30.9 Active confirmed 95358517 Problem Carpal tunnel syndrome of left wrist G56.02 Act lashonda confirmed 708467679208924 Problem Diabetes mellitus E11.9 Active confirmed 73 440390 Problem Essential (primary) hypertension I10 Active conf irmed 01188976 Problem Family history of colon cancer Z80.0 Active confir med 965031183 Problem Rectocele N81.6 Active confirmed 528056020 Problem BMI 31.0-31.9,adult Z68.31 Active confirmed 978145863 Problem Radiculopathy affecting upper extremity M54.10 Active confirmed 56972303 Problem Carpal tunnel syndrome of right wrist G56.01 Ac tive confirmed [id number] ALLERGIES No Known Allergies ENCOUNTERS from 1965 to 2021-06-28 Encounter Location Date Provider Diagnosis [facility] [address] [phone] [place] [address] May, Oren Beal IMMUNIZATIONS Vaccine Route Administration Date Status Hepatitis B 0.5mL HEPLISAV-B IM Intramuscular March 16, 2019 Ad ministered Hepatitis B 0.5mL HEPLISAV-B IM Intramuscular February 12, 2019 Ad ministered Influenza 18 yrs & older Flublok IM Intramuscular Aug 12, 2018 Administered Pneumococcal Adult 0.5mL Pneumovax 23 IM Intramuscular Aug 09 014 Administered Influenza Pharmacy Given Unknown Aug 16, 2020 Adminis tered TDAP 0.5mL (Boostrix) IM Intramuscular January 15, 2017 Administe red Influenza 18 yrs & older Flublok IM Intramuscular Aug 02, 2019 Administered Influenza 6mo & up Fluzone IM Intramuscular Aug 07, 2017 Admi nistered Hepatitis A Adult 1.0mL Havrix IM Intramuscular January 19, 2021 Administered Influenza 6mo & up Fluzone IM [...] Notes Total Score: 1 Interpretation: Alcohol Education Yazdanism: Question Answer Notes Yazdanism No caodaism beliefs that would impact health care. Sexual Hx: Question Answer Notes Had sex in the last 12 months (vaginal, oral, or anal)? Yes LMP: hysterectomy Have you ever had an STD? No with Men only Use protection? No Drug and Alcohol Question Answer Notes Total Score: 0 Interpretation: No problems reported BMI Care Goal Follow-Up Question Answer Notes Above Normal BMI Follow-Up BMI=30.93 Tobacco Use: Question Answer Notes Are you a: never smoker former smoker quit a ge 23 REASON FOR REFERRAL No Information VITAL SIGNS No information MEDICATIONS Medication SIG (Take, Route, Frequency, Duration) Notes Start Da te End Date Status OneTouch Test - as directed In Vitro, E11.9 Jul, Active En NoirTouch Basic System w/Device 1 E11.9 Jul, Active Loratadine-D 12HR 5-120 MG 1 tablet as needed Orally every 12 hrs Active B Complex - as directed Orally Activ e Motrin Active Atorvastatin Calcium 10 MG 1 tablet Orally Once a day for 90 Active Glucometer ---- as directed ---- as directed Nov, Active Lancets freestyle lite ---- subcutaneously as directedBID- Active Alcohol Preps --- --- --- as directed Nov, Active Liquid Tears Active Chlorthalidone 25 MG 1 tablet in the morning with food Orally Once a day for 90 day(s) Feb, Active Biotin Ultra Strength Act lashonda Glucostix freestyle lite --- subcutaneously bid prn- E11.9 Nov, Active Centrum Silver 50+Women - as directed Orally Active Chlorthalidone 25 MG 1 tablet in the morning with food Orally Once a day for 7 day(s) Apr, Active Flonase 50 MCG/DOSE 1 spray in each nostril Nasally Once a day prn Active metFORMIN HCl ER 500 MG 2 tablet Orally bid for 90 Active January Use - fully automatic bp cuff Dx I10 Aug, Active PROCEDURES No Information RESULTS No Results REASON FOR VISIT No Information MEDICAL (GENERAL) HISTORY Type Description Date Medical [...] Child x 2 1984,1988 Surgical History Hysterectomy 1990 Surgical History Ovarian cyst 09/2010 Surgical History Left Ureteroscopy/laser Lithotripsy/JJ s tent placement x2 2004 Surgical History ESWL Surgical History Kidney stone 11/2010 Surgical History ANTERIOR POSTERIOR REPAIR s Surgical History upper and lower BLEPH 02/2015 Surgical History posterior repair 10/2017 Surgical History eye surgery 08/15/2018 Surgical History Carpal tunnel right 07/20/2019 Hospitalization History Surgery Goals Section No Information Health Concerns No Information MEDICAL EQUIPMENT No Information MENTAL STATUS No Information FUNCTIONAL STATUS No Information ASSESSMENTS No Information PLAN OF TREATMENT Medication Medication Name Sig Start Date Stop Date Alcohol Preps --- --- --- as directed Nov, Flonase 50 MCG/DOSE 1 spray in each nostril Nasally Once a day p rn Lancets freestyle lite ---- subcutaneously as directedBID- E11.9 Glucometer ---- as directed ---- as directed Nov, Chlorthalidone 25 MG 1 tablet in the morning with food Orally Once a day for 90 day(s) Feb, Motrin B Complex - as directed Orally OneTouch Test - as directed In Vitro, E11.9 Jul, Loratadine-D 12HR 5-120 MG 1 tablet as needed Orally every 12 hr s Biotin Ultra Strength Atorvastatin Calcium 10 MG 1 tablet Orally Once a day for 90 Centrum Silver 50+Women - as directed Orally metFORMIN HCl ER 500 MG 2 tablet Orally bid for 90 Liquid Tears Glucostix freestyle lite --- subcutaneously bid prn- E11.05 30 Dane bermudez, 2011 Chlorthalidone 25 MG 1 tablet in the morning with food Orally Once a day for 7 day(s) Apr, Architonicuch Basic System w/Device 1 .Jul,January Use - fully automatic bp cuff Dx I10 Aug, Next Appt Details Provider Name:Oren Beal, 2021-08-09 09:00:00 AM, [address], , [place], [address], Insurance Providers Payer Name Payer Address Payer Phone Insured Name Patient Relati onship to Insured Coverage Start Date Coverage End Date [facility] [address] [address] [facility] [phone] THERESA CANDELARIO
--- OUTSIDE RECORDS SUMMARY | 2021-09-03 10:52 | CCD ---
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 Role Phone Oren Beal Unavailable PROBLEMS Type Condition ICD9-CM Code [id number]-[id number] Code Onset Dates Condition S tatus W/U Status Risk SNOMED Code Notes Problem Needs flu shot Z23 Active confirmed 70840 3001 Problem Other and unspecified hyperlipidemia E78.5 Act lashonda confirmed 69042446 Problem Hypovitaminosis D E55.9 Active confirmed 34 859607 Problem Chronic GERD K21.9 Active confirmed 9131246 09 Problem Chronic allergic rhinitis, unspecified s easonality, unspecified trigger J30.9 Active confirmed 81382849 Problem Carpal tunnel syndrome of left wrist G56.02 Act lashonda confirmed 109556471855432 Problem Diabetes mellitus E11.9 Active confirmed 73 892690 Problem Essential (primary) hypertension I10 Active conf irmed 53952289 Problem Family history of colon cancer Z80.0 Active confir med 702537911 Problem Rectocele N81.6 Active confirmed 044761347 Problem BMI 31.0-31.9,adult Z68.31 Active confirmed 847472338 Problem Radiculopathy affecting upper extremity M54.10 Active confirmed 84405154 Problem Carpal tunnel syndrome of right wrist G56.01 Ac tive confirmed [id number] ALLERGIES No Known Allergies ENCOUNTERS from 1965 to 2021-08-15 Encounter Location Date Provider Diagnosis [facility] [address] [facility] [phone] [place] [address] 11 Jul, 2021 Oren Beal Breast cancer screen ing by mammogram Z12.31 and Encounter for annual routine gynecological examination Z01.419 IMMUNIZATIONS Vaccine Route Administration Date Status Hepatitis [...] Notes Total Score: 1 Interpretation: Alcohol Education Cheondoism: Question Answer Notes Cheondoism No presybeterian beliefs that would impact health care. Sexual [...] REASON FOR REFERRAL No Information VITAL SIGNS Weight 168.2 lbs Jul, Height 61.5 in Jul, BMI 31.26 kg/m2 Jul, Blood pressure systolic 152 mm Hg Jul, Blood pressure diastolic 90 mm Hg Jul, MEDICATIONS Medication SIG (Take, Route, Frequency, Duration) Notes Start Da te End Date Status OneTouch Test - as directed In Vitro, E11.9 Jul, Active Glucostix freestyle lite --- subcutaneously bid [...] Complex - as directed Orally Activ e FuturaMedia Basic System w/Device 1 E11.9 Jul, Active Motrin Active Atorvastatin Calcium 10 MG [...] Information RESULTS No Results REASON FOR VISIT ANNUAL/MENOPAUSAL ISSSUES MEDICAL (GENERAL) HISTORY Type Description Date Medical [...] stone 11/2010 Surgical History ANTERIOR POSTERIOR REPAIR 1990's Surgical History upper and lower BLEPH 02/2015 Surgical History posterior repair 10/2017 Surgical History eye surgery 08/15/2018 Surgical History Carpal tunnel right 07/20/2019 Hospitalization History Surgery Hospitalization History childbirth Goals Section No Information Health Concerns No Information MEDICAL EQUIPMENT No Information MENTAL STATUS No Information FUNCTIONAL STATUS No Information ASSESSMENTS Encounter Date Diagnosis Assessment Notes Treatment Notes Treatm ent Clinical Notes Jul, Breast cancer screening by mammogram (ICD-10 - Z 12.31) Jul, Encounter for annual routine gynecological examination (ICD-10 - Z01.419) PLAN OF TREATMENT Medication Medication Name Sig Start Date Stop Date Estradiol 0.1 MG/24HR 1 patch to skin Transdermal Two times a Week for 90 day(s) Jul, Pending Tests Test Name Order Date WMM DIGITAL MAMMO SCREENING BILAT (Ultra sound if indicated) [id number].DIGHWMAMS [facility] 2021-08-09 Insurance Providers Payer Name Payer Address Payer Phone Insured Name Patient Relati onship to Insured Coverage Start Date Coverage End Date [facility] [address] [address] [facility] [id number] THERESA CANDELARIO
--- OUTSIDE RECORDS SUMMARY | 2021-09-03 10:52 | CCD ---
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 Role Phone Jeff Lira Unavailable PROBLEMS Type Condition ICD9-CM Code [id number] Code Onset Dates Condition S tatus W/U Status Risk SNOMED Code Notes Problem Needs flu shot Z23 Active confirmed 67955 3001 Problem Other and unspecified hyperlipidemia E78.5 Act lashonda confirmed 33712492 Problem Hypovitaminosis D E55.9 Active confirmed 34 231515 Problem Chronic GERD K21.9 Active confirmed 6433465 09 Problem Chronic allergic rhinitis, unspecified s easonality, unspecified trigger J30.9 Active confirmed 79230396 Problem Carpal tunnel syndrome of left wrist G56.02 Act lashonda confirmed 124903951671258 Problem Diabetes mellitus E11.9 Active confirmed 73 176555 Problem Essential (primary) hypertension I10 Active conf irmed 65152509 Problem Family history of colon cancer Z80.0 Active confir med 303787227 Problem Rectocele N81.6 Active confirmed 147776308 Problem BMI 31.0-31.9,adult Z68.31 Active confirmed 690900363 Problem Radiculopathy affecting upper extremity M54.10 Active confirmed 05168035 Problem Carpal tunnel syndrome of right wrist G56.01 Ac tive confirmed [id number] ALLERGIES No Known Allergies ENCOUNTERS from 1965 to 2021-06-29 Encounter Location Date Provider Diagnosis [facility] [address] [phone] [place] [address] May, Jeff Lira Breast cancer screening by mammogram Z12 .31 IMMUNIZATIONS Vaccine Route Administration Date Status Influenza [...] Notes Total Score: 1 Interpretation: Alcohol Education Uatsdin: Question Answer Notes Uatsdin No voodoo beliefs that would impact health care. Sexual [...] as directed In Vitro, E11.9 Jul, Active Nuregouch Basic System w/Device 1 E11.9 Jul, Active [...] 2 tablet Orally bid for 90 Active May Use - fully automatic bp cuff Dx I10 Aug, Active PROCEDURES No Information RESULTS No Results REASON FOR VISIT Mammogram Order Please MEDICAL (GENERAL) HISTORY Type Description Date Medical [...] Notes Treatment Notes Treatm ent Clinical Notes May, Breast cancer screening by mammogram (ICD-10 - Z 12.31) PLAN OF TREATMENT Medication Medication Name Sig [...] Test - as directed In Vitro, E11.Jul, Loratadine-D 12HR 5-120 MG 1 tablet as needed Orally every 12 hr s Biotin Ultra Strength Atorvastatin Calcium 10 MG 1 tablet Orally Once a day for 90 Centrum Silver 50+Women - as directed Orally metFORMIN HCl ER 500 MG 2 tablet Orally bid for 90 Liquid Tears Glucostix freestyle lite --- subcutaneously bid prn- E11.05 30 Ma r, 2011 Chlorthalidone 25 MG 1 tablet in the morning with food Orally Once a day for 7 day(s) Apr, CloudSway Basic System w/Device 1 .Jul, May Use - fully automatic bp cuff Dx I10 Aug, Future Test Test Name Order Date [facility] Thai Screening Bilateral (Ultrasound if Indicated ) (3D Mammo) [id number] Next Appt Details Provider Name:Oren Beal, 2021-08-09 09:00:00 AM, [address] [facility], , [place], [address], Insurance Providers Payer Name Payer Address Payer Phone Insured Name Patient Relati onship to Insured Coverage Start Date Coverage End Date [facility] [address] [address] [facility] [phone] THERESA CANDELARIO
--- OUTSIDE RECORDS SUMMARY | 2021-09-03 10:53 | CCD ---
Author Author [facility] Organization [facility] Address Unknown Phone Unavailable Care Team Providers Care Dye Tub Tender Name Role Phone Davey, Cheyanne FINANCIAL ASSISTANCE ADVISOR Unavailable Unavailable Davey, Cheyanne FINANCIAL ASSISTANCE ADVISOR Unavailable Unavailable Davey, Cheyanne FINANCIAL ASSISTANCE ADVISOR Unavailable Unavailable Davey, Cheyanne FINANCIAL ASSISTANCE ADVISOR Unavailable Unavailable Davey, Cheyanne FINANCIAL ASSISTANCE ADVISOR Unavailable Unavailable Davey, Cheyanne FINANCIAL ASSISTANCE ADVISOR Unavailable Unavailable Davey, Cheyanne FINANCIAL ASSISTANCE ADVISOR Unavailable Unavailable Davey, Cheyanne FINANCIAL ASSISTANCE ADVISOR Unavailable Unavailable Davey, Cheyanne FINANCIAL ASSISTANCE ADVISOR Unavailable Unavailable Davey, Cheyanne FINANCIAL ASSISTANCE ADVISOR Unavailable Unavailable Davey, Cheyanne FINANCIAL ASSISTANCE ADVISOR Unavailable Unavailable Davey, Cheyanne FINANCIAL ASSISTANCE ADVISOR Unavailable Unavailable Davey, Cheyanne FINANCIAL ASSISTANCE ADVISOR Unavailable Unavailable Davey, Cheyanne FINANCIAL ASSISTANCE ADVISOR Unavailable Unavailable Davey, Cheyanne FINANCIAL ASSISTANCE ADVISOR Unavailable Unavailable Davey, Cheyanne FINANCIAL ASSISTANCE ADVISOR Unavailable Unavailable Davey, Cheyanne FINANCIAL ASSISTANCE ADVISOR Unavailable Unavailable Davey, Cheyanne FINANCIAL ASSISTANCE ADVISOR Unavailable Unavailable Davey, Cheyanne FINANCIAL ASSISTANCE ADVISOR Unavailable Unavailable Davey, Cheyanne FINANCIAL ASSISTANCE ADVISOR Unavailable Unavailable Davey, Cheyanne FINANCIAL ASSISTANCE ADVISOR Unavailable Unavailable Davey, Cheyanne FINANCIAL ASSISTANCE ADVISOR Unavailable Unavailable Davey, Cheyanne FINANCIAL ASSISTANCE ADVISOR Unavailable Unavailable Davey, Cheyanne FINANCIAL ASSISTANCE ADVISOR Unavailable Unavailable Davey, Cheyanne FINANCIAL ASSISTANCE ADVISOR Unavailable Unavailable Davey, Cheyanne FINANCIAL ASSISTANCE ADVISOR Unavailable Unavailable Davey, Cheyanne FINANCIAL ASSISTANCE ADVISOR Unavailable Unavailable Davey, Cheyanne FINANCIAL ASSISTANCE ADVISOR Unavailable Unavailable Davey, Cheyanne FINANCIAL ASSISTANCE ADVISOR Unavailable Unavailable Davey, Cheyanne FINANCIAL ASSISTANCE ADVISOR Unavailable Unavailable Davey, Cheyanne FINANCIAL ASSISTANCE ADVISOR Unavailable Unavailable Davey, Cheyanne FINANCIAL ASSISTANCE ADVISOR Unavailable Unavailable Davey, Cheyanne FINANCIAL ASSISTANCE ADVISOR Unavailable Unavailable Davey, Cheyanne FINANCIAL ASSISTANCE ADVISOR Unavailable Unavailable Davey, Cheyanne FINANCIAL ASSISTANCE ADVISOR Unavailable Unavailable Davey, Cheyanne FINANCIAL ASSISTANCE ADVISOR Unavailable Unavailable Davey, Cheyanne FINANCIAL ASSISTANCE ADVISOR Unavailable Unavailable Davey, Cheyanne FINANCIAL ASSISTANCE ADVISOR Unavailable Unavailable Davey, Cheyanne FINANCIAL ASSISTANCE ADVISOR Unavailable Unavailable Davey, Cheyanne FINANCIAL ASSISTANCE ADVISOR Unavailable Unavailable Davey, Cheyanne FINANCIAL ASSISTANCE ADVISOR Unavailable Unavailable Davey, Cheyanne FINANCIAL ASSISTANCE ADVISOR Unavailable Unavailable Davey, Cheyanne FINANCIAL ASSISTANCE ADVISOR Unavailable Unavailable Davey, Cheyanne FINANCIAL ASSISTANCE ADVISOR Unavailable Unavailable Davey, Cheyanne FINANCIAL ASSISTANCE ADVISOR Unavailable Unavailable Davey, Cheyanne FINANCIAL ASSISTANCE ADVISOR Unavailable Unavailable Davey, Cheyanne FINANCIAL ASSISTANCE ADVISOR Unavailable Unavailable Davey, Cheyanne FINANCIAL ASSISTANCE ADVISOR Unavailable Unavailable Marcial, M Clare PA Unavailable Unavailable Marcial, M Clare PA Unavailable Unavailable Marcial, M Clare PA Unavailable Unavailable Marcial, M Clare PA Unavailable Unavailable Marcial, M Clare PA Unavailable Unavailable Marcial, M Clare PA Unavailable Unavailable Marcial, M Clare PA Unavailable Unavailable Marcial, M Clare PA Unavailable Unavailable Marcial, M Clare PA Unavailable Unavailable Marcial, M Clare PA Unavailable Unavailable Marcial, M Clare PA Unavailable Unavailable Marcial, M Clare PA Unavailable Unavailable Marcial, M Clare PA Unavailable Unavailable Marcial, M Clare PA Unavailable Unavailable Marcial, M Clare PA Unavailable Unavailable Marcial, M Clare PA Unavailable Unavailable Marcial, M Clare PA Unavailable Unavailable Marcial, M Clare PA Unavailable Unavailable Marcial, M Clare PA Unavailable Unavailable Marcial, M Clare PA Unavailable Unavailable Marcial, M Clare PA Unavailable Unavailable Marcial, M Clare PA Unavailable Unavailable Marcial, M Clare PA Unavailable Unavailable Marcial, M Clare PA Unavailable Unavailable Marcial, M Clare PA Unavailable Unavailable Marcial, M Clare PA Unavailable Unavailable Marcial, M Clare PA Unavailable Unavailable Marcial, M Clare PA Unavailable Unavailable Marcial, M Clare PA Unavailable Unavailable Marcial, M Clare PA Unavailable Unavailable Marcial, M Clare PA Unavailable Unavailable Marcial, M Clare PA Unavailable Unavailable Marcial, M Clrae PA Unavailable Unavailable Marcial, M Clare PA Unavailable Unavailable Marcial, M Clare PA Unavailable Unavailable Marcial, M Clare PA Unavailable Unavailable Marcial, M Clare PA Unavailable Unavailable Marcial, M Clare PA Unavailable Unavailable Marcial, M Clare PA Unavailable Unavailable Marcial, M Clare PA Unavailable Unavailable Rachael Marcial PA Unavailable Unavailable Rachael Marcial PA Unavailable Unavailable Rachael Marcial PA Unavailable Unavailable Rachael Marcial PA Unavailable Unavailable Rachael Marcial PA Unavailable Unavailable Rachael Marcial PA Unavailable Unavailable Rachael Marcial PA Unavailable Unavailable [place], Carmen FINANCIAL ASSISTANCE ADVISOR Unavailable Unavailable [place], Carmen FINANCIAL ASSISTANCE ADVISOR Unavailable Unavailable [place], Carmen FINANCIAL ASSISTANCE ADVISOR Unavailable Unavailable [place], Carmen FINANCIAL ASSISTANCE ADVISOR Unavailable Unavailable [place], Carmen FINANCIAL ASSISTANCE ADVISOR Unavailable Unavailable [place], Carmen FINANCIAL ASSISTANCE ADVISOR Unavailable Unavailable [place], Carmen FINANCIAL ASSISTANCE ADVISOR Unavailable Unavailable [place], Carmen FINANCIAL ASSISTANCE ADVISOR Unavailable Unavailable [place], Carmen FINANCIAL ASSISTANCE ADVISOR Unavailable Unavailable [place], Carmen FINANCIAL ASSISTANCE ADVISOR Unavailable Unavailable [place], Carmen FINANCIAL ASSISTANCE ADVISOR Unavailable Unavailable [place], Carmen FINANCIAL ASSISTANCE ADVISOR Unavailable Unavailable [place], Carmen FINANCIAL ASSISTANCE ADVISOR Unavailable Unavailable [place], Carmen FINANCIAL ASSISTANCE ADVISOR Unavailable Unavailable [place], Carmen FINANCIAL ASSISTANCE ADVISOR Unavailable Unavailable [place], Carmen FINANCIAL ASSISTANCE ADVISOR Unavailable Unavailable [place], Carmen FINANCIAL ASSISTANCE ADVISOR Unavailable Unavailable [place], Carmen FINANCIAL ASSISTANCE ADVISOR Unavailable Unavailable [place], Carmen FINANCIAL ASSISTANCE ADVISOR Unavailable Unavailable [place], Carmen FINANCIAL ASSISTANCE ADVISOR Unavailable Unavailable [place], Carmen FINANCIAL ASSISTANCE ADVISOR Unavailable Unavailable [place], Carmen FINANCIAL ASSISTANCE ADVISOR Unavailable Unavailable [place], Carmen FINANCIAL ASSISTANCE ADVISOR Unavailable Unavailable [place], Carmen FINANCIAL ASSISTANCE ADVISOR Unavailable Unavailable [place], Carmen FINANCIAL ASSISTANCE ADVISOR Unavailable Unavailable [place], Carmen FINANCIAL ASSISTANCE ADVISOR Unavailable Unavailable [place], Carmen FINANCIAL ASSISTANCE ADVISOR Unavailable Unavailable [place], Carmen FINANCIAL ASSISTANCE ADVISOR Unavailable Unavailable [place], Carmen FINANCIAL ASSISTANCE ADVISOR Unavailable Unavailable [place], Carmen FINANCIAL ASSISTANCE ADVISOR Unavailable Unavailable [place], Carmen FINANCIAL ASSISTANCE ADVISOR Unavailable Unavailable [place], Carmen FINANCIAL ASSISTANCE ADVISOR Unavailable Unavailable [place], Carmen FINANCIAL ASSISTANCE ADVISOR Unavailable Unavailable [place], Carmen FINANCIAL ASSISTANCE ADVISOR Unavailable Unavailable [place], Nishi Long FINANCIAL ASSISTANCE ADVISOR Unavailable Unavailable [place], Nishi Long FINANCIAL ASSISTANCE ADVISOR Unavailable Unavailable MEDENT_[id number], NA Unavailable [phone] Sarah Vick, Nikolai Victoria MD, FACS Unavailable Unavailable Sarah Vick, Nikolai Victoria MD, FACS Unavailable Unavailable Sarah Vick, Nikolai Victoria MD, FACS Unavailable Unavailable Sarah Vick, Nikolai Victoria MD, FACS Unavailable Unavailable Sarah Vick, Nikolai Victoria MD, FACS Unavailable Unavailable Sarah Vick, Nikolai Victoria MD, FACS Unavailable Unavailable Sarah Vick, Nikolai Victoria MD, FACS Unavailable Unavailable Sarah Vick, Nikolai Victoria MD, FACS Unavailable Unavailable Sarah Vick, Nikolai Victoria MD, FACS Unavailable Unavailable Sarah Vick, Nikolai Victoria MD, FACS Unavailable Unavailable Sarah Vick, Nikolai Victoria MD, FACS Unavailable Unavailable Sarah Vick, Nikolai Victoria MD, FACS Unavailable Unavailable Sarah Vick, Nikolai Victoria MD, FACS Unavailable Unavailable Sarah Vick, Nikolai Victoria MD, FACS Unavailable Unavailable Sarah Vick, Nikolai Victoria MD, FACS Unavailable Unavailable Sarah Vick, Nikolai Victoria MD, FACS Unavailable Unavailable Sarah Vick, Nikolai Victoria MD, FACS Unavailable Unavailable Sarah Vick, Nikolai Victoria MD, FACS Unavailable Unavailable Sarah Vick, Nikolai Victoria MD, FACS Unavailable Unavailable Sarah Vick, Nikolai Victoria MD, FACS Unavailable Unavailable Sarah Vick, Nikolai Victoria MD, FACS Unavailable Unavailable Sarah Vick, Nikolai Victoria MD, FACS Unavailable Unavailable Sarah Vick, Nikolai Victoria MD, FACS Unavailable Unavailable Sarah Vick, Nikolai Victoria MD, FACS Unavailable Unavailable Sarah Vick, Nikolai Victoria MD, FACS Unavailable Unavailable Sarah Vick, Nikolai Victoria MD, FACS Unavailable Unavailable Sarah Vick, Nikolai Victoria MD, FACS Unavailable Unavailable Sarah Vick, Nikolai Victoria MD, FACS Unavailable Unavailable Sarah Vick, Nikolai Victoria MD, FACS Unavailable Unavailable Sarah Vick, Nikolai Victoria MD, FACS Unavailable Unavailable Sarah Vick, Nikolai Victoria MD, FACS Unavailable Unavailable Sarah Vick, Nikolai Victoria MD, FACS Unavailable Unavailable Sarah Vick, Nikolai Victoria MD, FACS Unavailable Unavailable Sarah Vick, Nikolai Victoria MD, FACS Unavailable Unavailable Sarah Vick, Nikolai Victoria MD, FACS Unavailable Unavailable Sarah Vick, Nikolai Victoria MD, FACS Unavailable Unavailable Sarah Vick, Nikolai Victoria MD, FACS Unavailable Unavailable Sarah Vick, Nikolai Victoria MD, FACS Unavailable Unavailable Sarah Vick, Nikolai Victoria MD, FACS Unavailable Unavailable Chad KAPLAN MD Unavailable Unavailable Chad KAPLAN MD Unavailable Unavailable Chad KAPLAN MD Unavailable Unavailable Chad KAPLAN MD Unavailable Unavailable Chad KAPLAN MD Unavailable Unavailable Chad KAPLAN MD Unavailable Unavailable Chad KAPLAN MD Unavailable Unavailable Chad KAPLAN MD Unavailable Unavailable Chad KAPLAN MD Unavailable Unavailable ROSAURAChad RUFFIN MD Unavailable Unavailable ROSAURAChad RUFFIN MD Unavailable Unavailable ROSAURAChad RUFFIN MD Unavailable Unavailable ROSAURAChad RUFFIN MD Unavailable Unavailable ROSAURAChad RUFFIN MD Unavailable Unavailable ROSAURAChad RUFFIN MD Unavailable Unavailable ROSAURAChad RUFFIN MD Unavailable Unavailable ROSAURAChad RUFFIN MD Unavailable Unavailable ROSAURAChad RUFFIN MD Unavailable Unavailable ROSAURAChad RUFFIN MD Unavailable Unavailable ROSAURAChad RUFFIN MD Unavailable Unavailable ROSAURAChad RUFFIN MD Unavailable Unavailable ROSAURAChad RUFFIN MD Unavailable Unavailable ROSAURAChad RUFFIN MD Unavailable Unavailable ROSAURAChad RUFFIN MD Unavailable Unavailable ROSAURAChad RUFFIN MD Unavailable Unavailable ROSAURAChad RUFFIN MD Unavailable Unavailable ROSAURAChad RUFFIN MD Unavailable Unavailable ROSAURAChad RUFFIN MD Unavailable Unavailable ROSAURAChad RUFFIN MD Unavailable Unavailable ROSAURAChad RUFFIN MD Unavailable Unavailable ROSAURAChad RUFFIN MD Unavailable Unavailable Chad KAPLAN MD Unavailable Unavailable ROSAURAChad RUFFIN MD Unavailable Unavailable ROSAURAChad RUFFIN MD Unavailable Unavailable ROSAURAChad RUFFIN MD Unavailable Unavailable ROSAURAChad RUFFIN MD Unavailable Unavailable ROSAURAChad RUFFIN MD Unavailable Unavailable ROSAURAChad RUFFIN MD Unavailable Unavailable Chad KPALAN MD Unavailable Unavailable Chad KAPLAN MD Unavailable Unavailable Chad KAPLAN MD Unavailable Unavailable Chad KAPLAN MD Unavailable Unavailable Chad KAPLAN MD Unavailable Unavailable Chad KAPLAN MD Unavailable Unavailable Chad KAPLAN MD Unavailable Unavailable Chad KAPLAN MD Unavailable Unavailable Chad KAPLAN MD Unavailable Unavailable Chad KAPLAN MD Unavailable Unavailable Chad KAPLAN MD Unavailable Unavailable Chad KAPLAN MD Unavailable Unavailable Chad KAPLAN MD Unavailable Unavailable ROSAURAChad RUFFIN MD Unavailable Unavailable ROSAURAChad RUFFIN MD Unavailable Unavailable Chad KAPLAN MD Unavailable Unavailable Chad KAPLAN MD Unavailable Unavailable Chad KAPLAN MD Unavailable Unavailable Chad KAPLAN MD Unavailable Unavailable Chad KAPLAN MD Unavailable Unavailable Chad KALPAN MD Unavailable Unavailable Chad KAPLAN MD Unavailable Unavailable Chad KAPLAN MD Unavailable Unavailable Chad KAPLAN MD Unavailable Unavailable Chad KAPLAN MD Unavailable Unavailable Chad KAPLAN MD Unavailable Unavailable Chad KAPLAN MD Unavailable Unavailable Chad KAPLAN MD Unavailable Unavailable Chad KAPLAN MD Unavailable Unavailable Chad KAPLAN MD Unavailable Unavailable Chad KAPLAN MD Unavailable Unavailable ROSAURAChad MD Unavailable Unavailable ROSAURAChad MD Unavailable Unavailable ROSAURAChad MD Unavailable Unavailable ROSAURAChad MD Unavailable Unavailable ROSAURAChad MD Unavailable Unavailable ROSAURAChad MD Unavailable Unavailable ROSAURAChad MD Unavailable Unavailable ROSAURAChad MD Unavailable Unavailable ROSAURAChad MD Unavailable Unavailable ROSAURAChad MD Unavailable Unavailable ROSAURAChad MD Unavailable Unavailable ROSAURA, Chad MCFARLAND MD Unavailable Unavailable ROSAURAChad MD Unavailable Unavailable ROSAURA, Chad MCFARLAND MD Unavailable Unavailable ROSAURA, Chad MCFARLAND MD Unavailable Unavailable ROSAURA, Chad MCFARLAND MD Unavailable Unavailable ROSAURA, D BARTOLO MD Unavailable Unavailable ROSAURAChad MD Unavailable Unavailable ROSAURA, Chad MCFARLAND MD Unavailable Unavailable ROSAURA, Chad MCFARLAND MD Unavailable Unavailable ROSAURA, Chad MCFARLAND MD Unavailable Unavailable ROSAURA, D BARTOLO MD Unavailable Unavailable ROSAURA, Chad MCFARLAND MD Unavailable Unavailable ROSAURA, D BARTOLO MD Unavailable Unavailable ROSAURA, Chad MCFARLAND MD Unavailable Unavailable ROSAURA, Chad MCFARLAND MD Unavailable Unavailable ROSAURA, Chad MCFARLAND MD Unavailable Unavailable ROSAURA, Chad MCFARLAND MD Unavailable Unavailable ROSAURA, Chad MCFARLAND MD Unavailable Unavailable ROSAURAChad MD Unavailable Unavailable ROSAURAChad MD Unavailable Unavailable ROSAURA, Chad MCFARLAND MD Unavailable Unavailable ROSAURAChad MD Unavailable Unavailable ROSAURA, Chad MCFARLAND MD Unavailable Unavailable ROSAURA, Chad MCFARLAND MD Unavailable Unavailable ROSAURA, Chad MCFARLAND MD Unavailable Unavailable ROSAURA, D BARTOLO MD Unavailable Unavailable ROSAURA, D BARTOLO MD Unavailable Unavailable ROSAURA, D BARTOLO MD Unavailable Unavailable ROSAURA, D BARTOLO MD Unavailable Unavailable ROSAURAChad MD Unavailable Unavailable ROSAURA, D BARTOLO MD Unavailable Unavailable ROSAURAChad MD Unavailable Unavailable ROSAURAChad MD Unavailable Unavailable ROSAURA, D BARTOLO MD Unavailable Unavailable ROSAURA, D BARTOLO DYER Unavailable Unavailable Re-disclosure Warning The records that you are about to access may contain information from federally-assisted alcohol or drug abuse programs. If such information is present, then the following federally mandated warning applies: This information has been disclosed to you from records protected by federal confidentiality rules (42 CFR part 2). The federal rules prohibit you from making any further disclosure of this information unless further disclosure is expressly permitted by the written consent of the person to whom it pertains or as otherwise permitted by 42 CFR part 2. A general authorization for the release of medical or other information is NOT sufficient for this purpose. The Federal rules restrict any use of the information to criminally investigate or prosecute any alcohol or drug abuse patient.The records that you are about to access may contain highly sensitive health information, the redisclosure of which is protected by Article 27-F of the [facility] Public Health law. If you continue you may have access to information: Regarding HIV / AIDS; Provided by facilities licensed or operated by the [facility] Office of Mental Health; or Provided by the [facility] Office for People With Developmental Disabilities. If such information is present, then the following [facility] mandated warning applies: This information has been disclosed to you from confidential records which are protected by state law. State law prohibits you from making any further disclosure of this information without the specific written consent of the person to whom it pertains, or as otherwise permitted by law. Any unauthorized further disclosure in violation of state law may result in a fine or fci sentence or both. A general authorization for the release of medical or other information is NOT sufficient authorization for further disc losure. Allergies and Adverse Reactions Type Description Substance Reaction Status Data Source(s ) Allergy to substance No Known Allergies No known allergies (situation ) BOO (Julien Vick MD [facility]) Allergy to substance No Known Allergies No known allergies (situation ) BOO (Julien Vick MD [facility]) Family History Family Member Name Family Member Gender Family Member Status Date o f Status Description Data Source(s) Unknown Female Problem MEDENT ([facility]) Encounters Encounter Providers Location Date Indications Data Source(s ) Unknown [address] [facility] [place] [address] 08/21/2021 12:00:00 AM EST eCW1 ([facility]) Outpatient [address] [facility] [place] [address] 08/09/2021 12:00:00 AM EST eCW1 ([facility]) <td ID="encounterTypeDescriptionID0">1 Y ear Follow-Up</td><td>Julien Vick MD, [facility]</td><td>Julien Flynn MD [facility]</td><td>07/17/2021</td><td>8:03AM</td><td>9:14AM</td><td></td>Outpatient Attender: Julien Vick MD, FACS Julien Flynn MD [facility] 07/17/2021 08:03:0 0 AM EDT - 07/17/2021 09:14:00 AM EDT BOO (Julien Vick MD [facility]) [place] [address] [facility] [address] 06/28/2021 12:00:00 AM EDT eCW1 ([facility]) [place] [address] [facility] [address] 06/28/2021 12:00:00 AM EDT eCW1 ([facility]) Outpatient Attender: Mercedes Edmonds [facility] Main Office 05/29/2021 02:15:00 PM EDT [facility] ([facility]) [place] [address] [facility] [place] [address] 05/14/2021 12:00:00 AM EDT eCW1 ([facility]) Unknown [address] [facility] [place] [address] 05/10/2021 12:00:00 AM EDT eCW1 ([facility]) Unknown [address] [facility] [place] [address] 03/14/2021 12:00:00 AM EDT eCW1 ([facility]) Unknown [address] [facility] [place] [address] 02/12/2021 12:00:00 AM EDT eCW1 ([facility]) Unknown [address] [facility] [place] [address] 11/03/2020 12:00:00 AM EST eCW1 ([facility]) Unknown [address] [facility] [place] [address] 11/03/2020 12:00:00 AM EST eCW1 ([facility]) Unknown [address] [facility] [place] [address] 10/25/2020 12:00:00 AM EST eCW1 ([facility]) Unknown [address] [facility] [place] [address] 10/22/2020 12:00:00 AM EST eCW1 ([facility]) Outpatient [address] [facility] [place] [address] 09/20/2020 12:00:00 AM EST eCW1 ([facility]) Unknown [address] [facility] [place] [address] 09/12/2020 12:00:00 AM EST eCW1 ([facility]) Unknown [address] [facility] [place] [address] 09/12/2020 12:00:00 AM EST eCW1 ([facility]) Outpatient Attender: MELINDA DAVIDSON_[id number] Physical Therapy 08/15/2020 10 :30:00 AM EST MEDENT ([facility] ) <td ID="encounterTypeDescriptionID0">1 Y ear Follow-Up</td><td>Julien Vick MD, FACS</td><td>Julien Flynn MD [facility]</td><td>07/21/2020</td><td>8:03AM</td><td>9:03AM</td><td><content ID="encounterDiagnosisID0-0">Taking Medication For Diabetes Long-term Use of Oral Hypoglycemics</content>, <content ID="encounterDiagnosisID0-1">Diabetes Mellitus Type 2 - Uncomplicated, Controlled</content>, <content ID="encounterDiagnosisID0-2">Retinopathy Hypertensive Both Eyes</content>, <content ID="encounterDiagnosisID0-3">Dry Eye Syndrome Both Eyes</content>, <content ID="encounterDiagnosisID0-4">Vitreous Disorders Degeneration</content></td>Outpatient Attender: Julien Vick MD, FACS Julien Flynn MD [facility] 07/21/2020 08:03:00 AM EDT - 07/21/2020 09:03:00 AM ED T Vitreous Disorders DegenerationDry Eye Syndrome Both EyesRetinopathy Hypertensive Both EyesDiabetes Mellitus Type 2 - Uncomplicated, ControlledTaking Medication For Diabetes Long-term Use of Oral Hypoglycemics VAIDEN (Julien Vick MD [facility]) Vitreous Disorders Degeneration 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 Diabetes Mellitus Type 2 - Uncomplicated , Controlled Taking Medication For Diabetes Long-term Use of Oral Hypoglycemics Outpatient Attender: MELINDA DAVIDSON_[id number] Physical Therapy 07/12/2020 11 :30:00 AM EDT MEDEDWIGE ([facility]) Outpatient Attender: BARTOLO KAPLAN MDReferrer: Cheyanne Davey FINANCIAL ASSISTANCE ADVISOR 11/24/2019 10:00:00 AM [facility] Outpatient Attender: BARTOLO KAPLAN MD 2018 08:00:00 AM [facility] 11/24/2018 08:00:00 AM [facility] Outpatient Attender: BARTOLO KAPLAN MD 11/20/2017 03:18:00 P M [facility] Outpatient Attender: Clare GRAHAM 11/26/2016 09:30:00 AM [facility] Outpatient Attender: Clare GRAHAM 07/13/2015 03:01:00 PM EDT [facility] Immunizations Vaccine Date Status Description Data Source(s) COVID-19 VACCINE Pfizer 06/27/2021 12:00:00 AM EDT completed [facility] Vaccine Series Complete: YESThis Data wa s Submitted to [facility] Via [employer]. Hep A, adult 01/19/2021 04:53:00 PM EDT completed e CW1 ([facility]) Hep A, adult 01/19/2021 04:53:00 PM EDT completed e CW1 ([facility]) Hep A, adult 01/19/2021 04:53:00 PM EDT completed e CW1 ([facility]) Hep A, adult 01/19/2021 04:53:00 PM EDT completed e CW1 ([facility]) Hep A, adult 01/19/2021 04:53:00 PM EDT completed e CW1 ([facility]) Hep A, adult 01/19/2021 04:53:00 PM EDT completed e CW1 ([facility]) Hep A, adult 01/19/2021 04:53:00 PM EDT completed e CW1 ([facility]) Hep A, adult 01/19/2021 04:53:00 PM EDT completed e CW1 ([facility]) COVID-19 VACCINE Pfizer 12/29/2020 12:00:00 AM EDT completed [facility] Vaccine Series Complete: YESThis Data wa s Submitted to [facility] [employer]. COVID-19 VACCINE Pfizer 12/08/2020 12:00:00 AM EST completed [facility] Vaccine Series Complete: NOThis Data was Submitted to [facility] [employer]. IIV3. This is one of two codes replacing CVX 15, which is being retired. 08/16/2020 03:43:00 PM EST completed eCW1 ([facility]) IIV3. This is one of two codes replacing CVX 15, which is being retired. 08/16/2020 03:43:00 PM EST completed eCW1 ([facility]) IIV3. This is one of two codes replacing CVX 15, which is being retired. 08/16/2020 03:43:00 PM EST completed eCW1 ([facility]) IIV3. This is one of two codes replacing CVX 15, which is being retired. 08/16/2020 03:43:00 PM EST completed eCW1 ([facility]) IIV3. This is one of two codes replacing CVX 15, which is being retired. 08/16/2020 03:43:00 PM EST completed eCW1 ([facility]) IIV3. This is one of two codes replacing CVX 15, which is being retired. 08/16/2020 03:43:00 PM EST completed eCW1 ([facility]) IIV3. This is one of two codes replacing CVX 15, which is being retired. 08/16/2020 03:43:00 PM EST completed eCW1 ([facility]) IIV3. This is one of two codes replacing CVX 15, which is being retired. 08/16/2020 03:43:00 PM EST completed eCW1 ([facility]) IIV3. This is one of two codes replacing CVX 15, which is being retired. 08/16/2020 03:43:00 PM EST completed eCW1 ([facility]) IIV3. This is one of two codes replacing CVX 15, which is being retired. 08/16/2020 03:43:00 PM EST completed eCW1 ([facility]) IIV3. This is one of two codes replacing CVX 15, which is being retired. 08/16/2020 03:43:00 PM EST completed eCW1 ([facility]) IIV3. This is one of two codes replacing CVX 15, which is being retired. 08/16/2020 03:43:00 PM EST completed eCW1 ([facility]) IIV3. This is one of two codes replacing CVX 15, which is being retired. 08/16/2020 03:43:00 PM EST completed eCW1 ([facility]) Medications Medication Brand Name Start Date Product Form Dose Route Admi nistrative Instructions Pharmacy Instructions Status Indications Reaction Description Data Source(s) 500 mg 08/21/2021 12:00:00 AM EST capsule 30 TAKE ONE CAPSULE BY MOUTH THREE TIMES A DAY UNTIL GONE TAKE ONE CAPSULE BY MOUTH THREE TIMES A DAY UNTIL GONE SOLD: 08/21/2021 [facility] 84 HR Estradiol 0.01417 MG/HR Transdermal Patch Estrad iol 0.1 MG/24HR Estradiol 0.1 MG/24HR 08/09/2021 12:00:00 AM EST 1.0 {patch_to_skin} active Estradiol 0.1 MG/24HR eCW1 ([facility]) 84 HR Estradiol 0.15031 MG/HR Transdermal Patch Estrad iol 0.1 MG/24HR Estradiol 0.1 MG/24HR 08/09/2021 12:00:00 AM EST 1.0 {patch_to_skin} active Estradiol 0.1 MG/24HR eCW1 ([facility]) 1.479-0.188- 0.225 gram 07/05/2021 12:00:00 AM EDT tablet 24 TAKE DIRECTED BY MOUTH TAKE DIRECTED BY MOUTH SOLD: 07/05/2021 [facility] 40 mg 07/05/2021 12:00:00 AM EDT capsule,delayed release (DR/EC) 15 TAKE ONE CAPSULE BY MOUTH EVERY MORNING TAKE ONE CAPSULE BY MOUTH EVERY MORNING SOLD: 08/09/2021 [facility] 40 mg 07/05/2021 12:00:00 AM EDT capsule,delayed release (DR/EC) 30 TAKE ONE CAPSULE BY MOUTH EVERY MORNING TAKE ONE CAPSULE BY MOUTH EVERY MORNING SOLD: 07/05/2021 [facility] 25 mg 05/15/2021 12:00:00 AM EDT tablet 7 TAKE ONE TABLET BY MOUTH EVERY DAY IN THE MORNING WITH FOOD FOR 7 DAYS TAKE ONE TABLET BY MOUTH EVERY DAY IN TH MORNING WITH FOOD FOR 7 DAYS SOLD: 05/15/2021 [facility] Chlorthalidone 25 MG Oral Tablet Chlorthalidone 25 MG 2020 12:00:00 AM EDT 1.0 {tablet_in_the_morning_with_food} active Chlorthalidone 25 MG eCW1 ([facility]) Chlorthalidone 25 MG Oral Tablet Chlorthalidone 25 MG 2020 12:00:00 AM EDT 1.0 {tablet_in_the_morning_with_food} active Chlorthalidone 25 MG eCW1 ([facility]) Chlorthalidone 25 MG Oral Tablet Chlorthalidone 25 MG 2020 12:00:00 AM EDT 1.0 {tablet_in_the_morning_with_food} active Chlorthalidone 25 MG eCW1 ([facility]) Chlorthalidone 25 MG Oral Tablet Chlorthalidone 25 MG 2020 12:00:00 AM EDT 1.0 {tablet_in_the_morning_with_food} active Chlorthalidone 25 MG eCW1 ([facility]) 24 HR Metformin hydrochloride 500 MG Extended Release Oral T ablet METFORMIN HCL 03/15/2021 12:00:00 AM EDT tablet extended release 24 hr 28 TAKE TWO TABLETS BY MOUTH TWICE A DAY TAKE TWO TABLETS BY MOUTH TWICE A DAY SOLD: 03/15/2021 [facility] Chlorthalidone 25 MG Oral Tablet Chlorthalidone 25 MG 2020 12:00:00 AM EDT 1.0 {tablet_in_the_morning_with_food} active Chlorthalidone 25 MG eCW1 ([facility]) Chlorthalidone 25 MG Oral Tablet Chlorthalidone 25 MG 2020 12:00:00 AM EDT 1.0 {tablet_in_the_morning_with_food} active Chlorthalidone 25 MG eCW1 ([facility]) Chlorthalidone 25 MG Oral Tablet Chlorthalidone 25 MG 2020 12:00:00 AM EDT 1.0 {tablet_in_the_morning_with_food} active Chlorthalidone 25 MG eCW1 ([facility]) Chlorthalidone 25 MG Oral Tablet Chlorthalidone 25 MG 2020 12:00:00 AM EDT 1.0 {tablet_in_the_morning_with_food} active Chlorthalidone 25 MG eCW1 ([facility]) 25 mg 03/15/2021 12:00:00 AM EDT tablet 30 TAKE ONE TABLET BY MOUTH EVERY MORNING WITH FOOD TAKE ONE TABLET BY MOUTH EVERY MORNING WITH FOOD SOLD: 03/31/2021 [facility] Chlorthalidone 25 MG Oral Tablet Chlorthalidone 25 MG 2020 12:00:00 AM EDT 1.0 {tablet_in_the_morning_with_food} active Chlorthalidone 25 MG eCW1 ([facility]) 25 mg 03/15/2021 12:00:00 AM EDT tablet 30 TAKE ONE TABLET BY MOUTH EVERY MORNING WITH FOOD TAKE ONE TABLET BY MOUTH EVERY MORNING WITH FOOD SOLD: 03/15/2021 [facility] Chlorthalidone 25 MG Oral Tablet Chlorthalidone 25 MG 2020 12:00:00 AM EDT 1.0 {tablet_in_the_morning_with_food} active Chlorthalidone 25 MG eCW1 ([facility]) Chlorthalidone 25 MG Oral Tablet Chlorthalidone 25 MG 2020 12:00:00 AM EDT 1.0 {tablet_in_the_morning_with_food} active Chlorthalidone 25 MG eCW1 ([facility]) Losartan Potassium 25 MG Oral Tablet Losartan Potassium 25 M G 02/13/2021 12:00:00 AM EDT 1.0 {tablet} active Lo sartan Potassium 25 MG eCW1 ([facility]) 25 mg 02/13/2021 12:00:00 AM EDT tablet 30 TAKE ONE TABLET BY MOUTH EVERY DAY TAKE ONE TABLET BY MOUTH EVERY DAY SOLD: 02/16/2021 [facility] 10 mg 01/21/2021 12:00:00 AM EDT tablet 30 TAKE ONE TABLET BY MOUTH EVERY DAY TAKE ONE TABLET BY MOUTH EVERY DAY SOLD: 01/21/2021 [facility] May Use - UNK 09/20/2020 12:00:00 AM EST active May Use - eCW1 ([facility]) May Use - UNK 09/20/2020 12:00:00 AM EST active May Use - eCW1 ([facility]) May Use - UNK 09/20/2020 12:00:00 AM EST active May Use - eCW1 ([facility]) May Use - UNK 09/20/2020 12:00:00 AM EST active May Use - eCW1 ([facility]) May Use - UNK 09/20/2020 12:00:00 AM EST active May Use - eCW1 ([facility]) May Use - UNK 09/20/2020 12:00:00 AM EST active May Use - eCW1 ([facility]) May Use - UNK 09/20/2020 12:00:00 AM EST active May Use - eCW1 ([facility]) May Use - UNK 09/20/2020 12:00:00 AM EST active May Use - eCW1 ([facility]) May Use - UNK 09/20/2020 12:00:00 AM EST active May Use - eCW1 ([facility]) May Use - UNK 09/20/2020 12:00:00 AM EST active May Use - eCW1 ([facility]) May Use - UNK 09/20/2020 12:00:00 AM EST active May Use - eCW1 ([facility]) May Use - UNK 09/20/2020 12:00:00 AM EST active May Use - eCW1 ([facility]) May Use - UNK 09/20/2020 12:00:00 AM EST active May Use - eCW1 ([facility]) 0.005 % 09/07/2020 12:00:00 AM EST ointment 15 APPLY TO TRUNK AND EXTREMITIES SPARINGLY TWICE A DAY FOR ONE WEEK NEEDED FOR ITCHING APPLY TO TRUNK AND EXTREMITIES SPARINGLY TWICE A DAY FOR ONE WEEK NEEDED FOR ITCHING SOLD: 09/10/2020 [facility] Phentermine Hydrochloride 30 MG Oral Capsule Phentermi ne HCl 30 MG Oral Capsule Phentermine HCl 30 MG Oral Capsule 07/21/2020 12:00:00 AM EDT 1 active phentermine hydrochloride 30 MG Oral Cap patricia BOO (Julien Vick MD [facility]) B Complex Oral Tablet B Complex Oral Tablet 07/21/2020 12:00:00 AM EDT 1 active B Complex BOO (Julien Vick MD [facility]) Atorvastatin 10 mg Oral Tablet Atorvastatin 10 mg Oral Table t 07/21/2020 12:00:00 AM EDT 1 active Atorvast atin 10 mg BOO (Julien Vick MD [facility]) 84 HR Estradiol 0.36870 MG/HR Transderma l Patch [Vivelle] Vivelle-Dot 0.05 MG/24HR Transdermal Patch Twice Weekly Vivelle-Dot 0.05 MG/24HR Transdermal Patch Twice Weekly 07/21/2020 12:00:00 AM EDT active 84 HR estradiol 0.14429 MG/HR Transdermal System [Vivelle] BOO (Julien Vick MD [facility]) Vitamin D3 250 MCG (23722 UT) Oral Tablet Vitamin D3 2 50 MCG (31427 UT) Oral Tablet 07/21/2020 12:00:00 AM EDT 1 active Vitamin D3 BOO (Julien Vick MD [facility]) Esomeprazole 20 MG Delayed Release Oral Capsule [Nexium] NexIUM 24HR 20 MG Oral Capsule Delayed Release NexIUM 24HR 20 MG Oral Capsule Delayed Release 07/21/2020 12:00:00 AM EDT 1 active esomeprazole 20 MG Delayed Release Oral Capsule [Nexium] BOO (Julien Vick MD [facility]) 30 mg 07/12/2020 12:00:00 AM EDT capsule 30 TAKE ONE CAPSULE BY MOUTH EVERY DAY MAXIMUM DAILY DOSE = 1 CAPSULE TAKE ONE CAPSULE BY MOUTH EVERY DAY MAXI MUM DAILY DOSE = 1 CAPSULE SOLD: 07/12/2020 [facility] Phentermine Hydrochloride 30 MG Oral Capsule Phentermine HCL 07/12/2020 12:00:00 AM EDT ORAL active MEDENT ([facility]) Phentermine Hydrochloride 15 MG Oral Capsule Phentermine HCL 06/13/2020 12:00:00 AM EDT ORAL completed MEDENT ([facility] ) 5-120 mg 12/06/2019 12:00:00 AM EDT tablet extended release 12 hr 60 TAKE ONE TABLET BY MOUTH EVERY 12 HOURS NEEDED TAKE ONE TABLET BY MOUTH EVERY 12 HOURS NEEDED SOLD: 07/14/2020 [facility] Insurance Providers Payer name Policy type / Coverage type Policy ID Covered constitution party ID Covered constitution party's relationship to dowd Policy Dowd Plan Information [employer] [place] Commercial [id number] Self [employer] [id number] Tami VYS [id number] [place] PPO 302/307 [id number] SP [id number] [employer] [id number] Tami VYA [id number] [employer] [place] [id number] S VYS [id number] [facility] [id number] [facility] [id number] [employer] BCBS B [id number] S VYA [id number] [place] WAT[place] PPO 302/307 [id number] SP [id number] ANSI-Commercial [id number] ANSI-Commercial [id number] [place] PPO 302/307 [id number] SP [id number] ANSI-Commercial [id number] ANSI-Commercial [id number] ANSI-Commercial [id number] ANSI-Commercial [id number] ANSI-Commercial [id number] [employer] BCBS PI PI [employer] [place] BC [id number] S VYA [id number] UMR [facility] [id number] [employer] [place]AT[place] PPO 302/307 [id number] HU [id number] [employer] [place] [id number] S VYS [id number] [employer] [place] Other 0 [id number] Self 0 UMR [facility] [id number] [id number] [employer] [place] Other 0 [id number] Self 0 UMR O [id number] S [id number] Problems, Conditions, and Diagnoses Code Display Name Description Problem Type Effective Dates Data Source(s) I10 [id number] Essential (primary) hypertension Problem 09/20/2020 12:00:00 AM EST eCW1 ([facility]) Surgeries/Procedures Procedure Description Date Indications Data Source(s) OFFICE OUTPATIENT VISIT 25 MINUTES 05/29/2021 12:00:00 AM EDT LETY ([facility]) Surgical / procedural history Partial H ysterectomy 1990, Ovarian Cyst removal 1994 and 2002, Kidney Stone removal 2003 and 2008, Total Hysterectomy 2014 and 2018, Blepharoplasty on both lids in 2014 with a lower eye laser procedure - Dr. Keene. Brooke Stratton sx-07/20/2019 Surgical / procedural history Partial Hysterectomy 1990, Ovarian Cyst removal 1994 and 2002, Kidney Stone removal 2003 and 2008, Total Hysterectomy 2014 and 2018, Blepharoplasty on both lids in 2014 with a lower eye laser procedure - Dr. Keene. Brooke Stratton sx-07/20/2019 07/21/2020 12:00:00 AM ANTHONY HADDAD (Julien elise MD [facility]) Laser assisted in situ keratomileusis (procedure) Hist ory of LASIK surgery of the right cornea PRK OD by Dr. Welsh 08/26/18 07/21/2020 12:00:00 AM EDT BOO (Julien Vick MD [facility]) Intermediate Eye Exam Established Patient Intermediate Eye Exam Established Patient 07/21/2020 12:00:00 AM EDT BOO (Tony Vick MD [facility]) Results ID Date Data Source [id number] 08/29/2021 09:40:00 AM EST [facility] Name Value Range Interpretation Code Description Data Rhoda rce(s) Supporting Document(s) SARS-CoV-2 (COVID-19) RNA [Presence] in Respiratory specimen by GERALDO with probe detection Not Detected [facility] This lab was ordered by [facility] and reported by [employer] ID Date Data Source [id number] 11/01/2020 12:00:00 AM EST [facility] Name Value Range Interpretation Code Description Data Rhoda rce(s) Supporting Document(s) SARS-CoV-2 (COVID-19) RNA [Presence] in Respiratory specimen by GERALDO with probe detection Positive for 2019-nCoV [facility] This lab was ordered by [facility] and reported by [employer] ID Date Data Source [id number] 09/03/2020 12:00:00 AM EST [facility] Name Value Range Interpretation Code Description Data Rhoda rce(s) Supporting Document(s) SARS-CoV2 Rapid Antigen [facility] This lab was ordered by [facility] and reported by [facility]. Procedure Social History Code Duration Value Status Description Data Source(s ) Smoking 08/20/2021 06:34:05 PM EST Ex-smoker (finding) complet ed Ex-smoker (finding) BOO (Julien Vick MD [facility]) Smoking 08/09/2021 12:00:00 AM EST Never Smoker completed Never S moker eCW1 ([facility]) Smoking 08/09/2021 12:00:00 AM EST Never Smoker completed Never S moker eCW1 ([facility]) Smoking 06/26/2021 05:04:33 PM EDT Ex-smoker (finding) complet ed Ex-smoker (finding) BOO (Julien Vick MD [facility]) Smoking 01/19/2021 12:00:00 AM EDT Never Smoker completed Never S moker eCW1 ([facility]) Smoking 01/19/2021 12:00:00 AM EDT Never Smoker completed Never S moker eCW1 ([facility]) Smoking 01/19/2021 12:00:00 AM EDT Never Smoker completed Never S moker eCW1 ([facility]) Smoking 01/19/2021 12:00:00 AM EDT Never Smoker completed Never S moker eCW1 ([facility]) Smoking 01/19/2021 12:00:00 AM EDT Never Smoker completed Never S moker eCW1 ([facility]) Smoking 01/19/2021 12:00:00 AM EDT Never Smoker completed Never S moker eCW1 ([facility]) Smoking 09/20/2020 12:00:00 AM EST Never Smoker completed Never S moker eCW1 ([facility]) Smoking 09/20/2020 12:00:00 AM EST Never Smoker completed Never S moker eCW1 ([facility]) Smoking 09/20/2020 12:00:00 AM EST Never Smoker completed Never S moker eCW1 ([facility]) Smoking 09/20/2020 12:00:00 AM EST Never Smoker completed Never S moker eCW1 ([facility]) Smoking 09/20/2020 12:00:00 AM EST Never Smoker completed Never S moker eCW1 ([facility]) Vital Signs ID Date Data Source UNK Name Value Range Interpretation Code Description Data Source(s) Body weight 168.2 [lb_av] 168.2 [lb_av] eCW1 ([facility]) Body height 61.5 [in_i] 61.5 [in_i] eCW1 ([facility]) Body mass index (BMI) [Ratio] 31.26 kg/m2 31.26 kg/m2 W1 ([facility]) Systolic blood pressure 152 mm[Hg] 152 mm[Hg] e CW1 ([facility]) Diastolic blood pressure 90 mm[Hg] 90 mm[Hg] eCW1 ([facility]) Systolic blood pressure 122 mm[Hg] 122 mm[Hg] M EDENT ([facility]) Diastolic blood pressure 76 mm[Hg] 76 mm[Hg] MEDENT ([facility]) Body mass index (BMI) [Ratio] 30.5 kg/m2 30.5 k g/m2 MEDENT ([facility]) Body weight 167.00 [lb_av] 167.00 [lb_av] MEDEN T ([facility]) Body height 62 [in_i] 62 [in_i] MEDENT ([facility]) 5'2" Body temperature 97.3 [degF] 97.3 [degF] MEDENT ([facility]) Body weight 158 [lb_av] 158 [lb_av] eCW1 ([facility]) Heart rate 89 /min 89 /min eCW1 ([facility]) Body height 61.5 [in_i] 61.5 [in_i] eCW1 ([facility]) Respiratory rate 18 /min 18 /min eCW1 ([facility]) Body temperature 97.8 [degF] 97.8 [degF] eCW1 ( [facility]) Body mass index (BMI) [Ratio] 29.37 kg/m2 29.37 kg/m2 eCW1 ([facility]) Systolic blood pressure 148 mm[Hg] 148 mm[Hg] e CW1 ([facility]) Diastolic blood pressure 90 mm[Hg] 90 mm[Hg] eCW1 ([facility]) Systolic blood pressure 150 mm[Hg] 150 mm[Hg] M EDENT ([facility]) Diastolic blood pressure 76 mm[Hg] 76 mm[Hg] MEDENT ([facility]) Heart rate 114 /min 114 /min MEDENT ([facility]) Body temperature 97.3 [degF] 97.3 [degF] MEDENT ([facility]) Body height 61 [in_i] 61 [in_i] MEDENT ([facility]) 5'1" Body weight 158.00 [lb_av] 158.00 [lb_av] MEDEN T ([facility]) Body mass index (BMI) [Ratio] 29.9 kg/m2 29.9 k g/m2 MEDENT ([facility]) Oxygen saturation in Arterial blood by Pulse oximetry 98 % 98 % MEDENT ([facility]) Body mass index (BMI) [Ratio] 30.9 kg/m2 30.9 k g/m2 MEDENT ([facility]) Oxygen saturation in Arterial blood by Pulse oximetry 98 % 98 % MEDENT ([facility]) Systolic blood pressure 124 mm[Hg] 124 mm[Hg] M EDENT ([facility]) Diastolic blood pressure 76 mm[Hg] 76 mm[Hg] MEDENT ([facility]) Heart rate 76 /min 76 /min MEDENT ([facility]) Body temperature 97.5 [degF] 97.5 [degF] MEDENT ([facility]) Body height 61 [in_i] 61 [in_i] MEDENT ([facility]) 5'1" Body weight 163.50 [lb_av] 163.50 [lb_av] MEDEN T ([facility]) Patient Treatment Plan of Care Planned Activity Planned Date Details Description Data Source (s) 84 HR Estradiol 0.47601 MG/HR Transdermal Patch 08/09/2021 12:00:00 AM EST eCW1 ([facility]) 84 HR Estradiol 0.78327 MG/HR Transdermal Patch 08/09/2021 12:00:00 AM EST eCW1 ([facility]) Chlorthalidone 25 MG Oral Tablet 05/14/2021 12:00:00 AM EDT eCW1 ([facility]) Chlorthalidone 25 MG Oral Tablet 05/14/2021 12:00:00 AM EDT eCW1 ([facility]) Chlorthalidone 25 MG Oral Tablet 05/14/2021 12:00:00 AM EDT eCW1 ([facility]) Chlorthalidone 25 MG Oral Tablet 05/14/2021 12:00:00 AM EDT eCW1 ([facility]) Chlorthalidone 25 MG Oral Tablet 03/15/2021 12:00:00 AM EDT eCW1 ([facility]) Chlorthalidone 25 MG Oral Tablet 03/15/2021 12:00:00 AM EDT eCW1 ([facility]) Chlorthalidone 25 MG Oral Tablet 03/15/2021 12:00:00 AM EDT eCW1 ([facility]) Chlorthalidone 25 MG Oral Tablet 03/15/2021 12:00:00 AM EDT eCW1 ([facility]) Chlorthalidone 25 MG Oral Tablet 03/15/2021 12:00:00 AM EDT eCW1 ([facility]) Losartan Potassium 25 MG Oral Tablet 02/13/2021 12:00:00 AM EDT eCW1 ([facility]) May Use - 09/20/2020 12:00:00 AM EST e CW1 ([facility]) May Use - 09/20/2020 12:00:00 AM EST e CW1 ([facility]) May Use - 09/20/2020 12:00:00 AM EST e CW1 ([facility]) May Use - 09/20/2020 12:00:00 AM EST e CW1 ([facility]) May Use - 09/20/2020 12:00:00 AM EST e CW1 ([facility]) May Use - 09/20/2020 12:00:00 AM EST e CW1 ([facility]) May Use - 09/20/2020 12:00:00 AM EST e CW1 ([facility]) May Use - 09/20/2020 12:00:00 AM EST e CW1 ([facility]) May Use - 09/20/2020 12:00:00 AM EST e CW1 ([facility]) May Use - 09/20/2020 12:00:00 AM EST e CW1 ([facility]) May Use - 09/20/2020 12:00:00 AM EST e CW1 ([facility])
--- OUTSIDE RECORDS SUMMARY | 2021-09-03 10:53 | CCD | Continuity of Care Document ---
Author Author Nara TELLEZ F.N.P. 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 No longer using. Allergies, Adverse Reactions, Alerts Description No Known Drug Allergies Medications Active Medications SIG Qnty Indications Ordering Provide r Date Fluticasone Propionate 0.005% Oint ment apply to trunk and extremities sparingly twice a day x 1 week as needed itching 15gm L29.8 Mercedes Tellez, F.N.P. 11/18/2016 Elocon 0.1% Lotion 1-2 drops twice a day x 5 days as needed scale. Please put on file. Patient will call when needs refill. 60ml Mercedes Tellez F.N.P. 2009 Clobetasol Propionate 0.05% Ointme nt apply to scalp twice a day sparingly x 2 weeks. Please put on file. Patient will call when needs refill. 60units L21.9 Mercedes Tellez F.N.P . 11/15/2009 Metformin HCL Unknown Flonase Unknown Atorvastatin Calcium Unknown Vitamin D3 Complete Unknown Biotin Unknown Loratadine Unknown Super B-Complex Unknown 0 Immunizations Description No Information Available Vital Signs Date Vital Result Comment 05/29/2021 2:20pm BP Systolic 122 mmHg BP Diastolic 76 mmHg Weight 167.00 lb Height 62 inches 5'2" BMI (Body Mass Index) 30.5 kg/m2 10/03/2020 8:50am Body Temperature 97.3 F Results Description No Information Available Procedures Date Code Description Status 05/29/2021 63958 Office/Outpatient Established Mo d MDM 30-39 Min Completed Medical Devices Description No Information Available Encounters Type Date Location Provider Dx Diagnosis Office Visit 05/29/2021 2:15p Main Office Mercedes Tellez, F.N.P. 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 Plan of Treatment Future Appointment(s):* 06/21/2021 8:15 am - JEET Mcclelland at Main Office * 09/10/2021 9:45 am - Mercedes Tellez, F.N.P. 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
[2021-09-03] MEDS ORDERED: fentaNYL 100 MCG/2 ML INJECTION (J3010) As Ordered ONE (11:35)
[2021-09-03] MEDS ORDERED: propofoL 200 MG/20 ML VIAL As Ordered ONE (11:38)
--- NOTE | 2021-09-03 12:15 | ROOR ---
Patient Name: Nara Diggs Procedure Date: 09/03/2021 11:56 AM Date of : 1965 Age: 56 Room: [facility] Gender: Female Note Status: Finalized Procedure: Upper Endoscopy + Biopsies Indications: Heartburn, Exclusion of Beal's esophagus Providers: Mike Welsh MD Referring MD: Jeff Lira MD Requesting Provider: Medicines: Monitored Anesthesia Care Complications: No immediate complications. Procedure: Pre-Anesthesia Assessment: - The heart rate, respiratory rate, oxygen saturations, blood pressure, adequacy of pulmonary ventilation, and response to care were monitored throughout the procedure. The Endoscope was introduced through the mouth, and advanced to the second part of duodenum. The upper GI endoscopy was accomplished without difficulty. The patient tolerated the procedure well. Findings: The Z-line was variable and was found 40 cm from the incisors. Multiple biopsies were obtained with cold forceps for evaluation to rule out Beal's Esophagus randomly at the gastroesophageal junction. No other significant abnormalities were identified in a careful examination of the stomach. The exam of the duodenum was otherwise normal. Impression: - Z-line variable, 40 cm from the incisors. - Multiple biopsies were obtained at the gastroesophageal junction. - The examination was otherwise normal. Recommendation: - Patient has a contact number available for emergencies. The signs and symptoms of potential delayed complications were discussed with the patient. Return to normal activities tomorrow. Written discharge instructions were provided to the patient. - High fiber diet. - Discharge patient to home. - Continue present medications. - Await pathology results. - Telephone GI clinic for pathology results in 1 week. - Repeat upper endoscopy for surveillance based on pathology results. - The findings and recommendations were discussed with the patient. Procedure Code(s): --- Professional --- 48762, Esophagogastroduodenoscopy, flexible, transoral; with biopsy, single or multiple Diagnosis Code(s): --- Professional --- K22.8, Other specified diseases of esophagus R12, Heartburn CPT copyright 2019 [employer]. All rights reserved. The codes documented in this report are preliminary and upon stone processing machine operator review may be revised to meet current compliance requirements. Mike Welsh MD Mike Welsh MD 09/03/2021 12:15:30 PM Electronically signed by Mike Welsh MD Number of Addenda: 0 Note Initiated On: 09/03/2021 11:56 AM Estimated Blood Loss: Estimated blood loss: none.
--- NOTE | 2021-09-03 12:36 | ROOR ---
Patient Name: Nara Diggs Procedure Date: 09/03/2021 11:58 AM Date of : 1965 Age: 56 Room: [facility] Gender: Female Note Status: Finalized Procedure: Total Colonoscopy to Cecum + Biopsy Polypectomy + ileoscopy Indications: High risk colon cancer surveillance: Personal history of colonic polyps, Last colonoscopy: 2015 Providers: Mike Welsh MD Referring MD: Jeff Lira MD Requesting Provider: Medicines: Monitored Anesthesia Care Complications: No immediate complications. Procedure: Pre-Anesthesia Assessment: - The heart rate, respiratory rate, oxygen saturations, blood pressure, adequacy of pulmonary ventilation, and response to care were monitored throughout the procedure. The Colonoscope was introduced through the anus and advanced to the cecum, identified by appendiceal orifice and ileocecal valve. The colonoscopy was performed without difficulty. The patient tolerated the procedure well. The quality of the bowel preparation was excellent. Findings: The perianal and digital rectal examinations were normal. Non-bleeding internal hemorrhoids were found during retroflexion. The hemorrhoids were small and Grade I (internal hemorrhoids that do not prolapse). Scattered small-mouthed diverticula were found in the recto-sigmoid colon, sigmoid colon and descending colon. Two sessile polyps were found in the entire colon. The polyps were small in size. These polyps were removed with a cold biopsy forceps. Resection and retrieval were complete. The exam was otherwise without abnormality on direct and retroflexion views. The terminal ileum appeared normal. Impression: - Non-bleeding internal hemorrhoids. - Diverticulosis in the recto-sigmoid colon, in the sigmoid colon and in the descending colon. - Two small polyps in the entire colon, removed with a cold biopsy forceps. Resected and retrieved. - The examination was otherwise normal on direct and retroflexion views. - The examined portion of the ileum was normal. - The exam was otherwise normal to the cecum. Recommendation: - Patient has a contact number available for emergencies. The signs and symptoms of potential delayed complications were discussed with the patient. Return to normal activities tomorrow. Written discharge instructions were provided to the patient. - High fiber diet. - Discharge patient to home. - Continue present medications. - Await pathology results. - Telephone GI clinic for pathology results in 1 week. - Repeat colonoscopy in 5 years for surveillance based on pathology results. - Return to referring physician. - The findings and recommendations were discussed with the patient. Procedure Code(s): --- Professional --- 48621, Colonoscopy, flexible; with biopsy, single or multiple Diagnosis Code(s): --- Professional --- Z86.010, Personal history of colonic polyps K64.0, First degree hemorrhoids K63.5, Polyp of colon K57.30, Diverticulosis of large intestine without perforation or abscess without bleeding CPT copyright 2019 [employer]. All rights reserved. The codes documented in this report are preliminary and upon integration engineer review may be revised to meet current compliance requirements. Mike Welsh MD Mike Welsh MD 09/03/2021 12:36:18 PM Electronically signed by Mike Welsh MD Number of Addenda: 0 Note Initiated On: 09/03/2021 11:58 AM Estimated Blood Loss: Estimated blood loss: none.
[2021-09-03 12:55] VITALS: BP 123/77
== END 2021-09-03 13:05 | disposition home or self-care (01) ==
LOC: M OPP 10:46
PROVIDERS: ATTEND Internal Medicine Gastroenterology
DX: Z12.11 Encounter for screening for malignant neoplasm of colon (principal); Z86.010 Personal history of colon polyps; Z80.0 Family history of malignant neoplasm of digestive organs; K63.5 Polyp of colon; K57.30 Diverticulosis of large intestine without perforation or abscess without bleeding; K64.0 First degree hemorrhoids; K22.89 Other specified disease of esophagus; R12 Heartburn; Z79.84 Long term (current) use of oral hypoglycemic drugs; Z79.899 Other long term (current) drug therapy
CPT/HCPCS: 43239; 45380; 88305; J3010

== ENCOUNTER → 2021-10-04 | Outpatient (CLI) | payer OTHER ==
[~2021-10-04] MED LIST changes: -LIDOCAINE 2% 100MG/5ML SDV (FOR ANES.) As Ordered ONE; -NS 1,000 ML IV ONE; -propofoL 200 MG/20 ML VIAL As Ordered ONE
== END ==
LOC: M PLAIMG 11:06
PROVIDERS: ATTEND Otolaryngology
DX: J32.9 Chronic sinusitis, unspecified (principal)

== ENCOUNTER → 2021-11-07 | Outpatient (REF) | payer OTHER ==
[2021-11-07 12:22] LABS: ALBUMIN 4.2 GM/DL (3.2-5.2); ALT/SGPT 54 U/L (12-78); BILIRUBIN,TOTAL 0.5 MG/DL (0.2-1.0); BLOOD UREA NITROGEN 21 MG/DL (7-18); CALCIUM LEVEL 9.1 MG/DL (8.5-10.1); CARBON DIOXIDE LEVEL 30 MEQ/L (21-32); CHLORIDE LEVEL 99 MEQ/L (98-107); CREATININE FOR GFR 0.94 MG/DL (0.55-1.30); GLOMERULAR FILTRATION RATE > 60.0 (>51); GLUCOSE, FASTING 199 MG/DL (70-100); POTASSIUM SERUM 3.7 MEQ/L (3.5-5.1); SODIUM LEVEL 137 MEQ/L (136-145); TOTAL PROTEIN 7.2 GM/DL (6.4-8.2)
[2021-11-07 12:31] LABS: MALB URINE SIEMENS 7.5 MG/L
[2021-11-07 12:48] LABS: HEMOGLOBIN A1c 8.3 %
== END ==
LOC: M SFHCCLAY 08:25
PROVIDERS: ATTEND Family Medicine
DX: E11.9 Type 2 diabetes mellitus without complications (principal); I10 Essential (primary) hypertension; M76.61 Achilles tendinitis, right leg; M76.62 Achilles tendinitis, left leg

== ENCOUNTER → 2022-02-07 | Outpatient (REF) | payer OTHER ==
[2022-02-07 12:05] LABS: CALCIUM LEVEL 9.4 MG/DL (8.5-10.1); CREATININE FOR GFR 1.05 MG/DL (0.55-1.30); GLOMERULAR FILTRATION RATE 57.3 (>51)
[2022-02-07 12:11] LABS: HEMOGLOBIN A1c 7.6 %
== END ==
LOC: M SFHCCLAY 07:32
PROVIDERS: ATTEND Family Medicine
DX: E11.9 Type 2 diabetes mellitus without complications (principal)

== ENCOUNTER → 2022-05-13 | Outpatient (REF) | payer OTHER ==
[2022-05-13 14:41] LABS: ALBUMIN 4.3 GM/DL (3.2-5.2); ALT/SGPT 53 U/L (12-78); BILIRUBIN,TOTAL 1.2 MG/DL (0.2-1.0); BLOOD UREA NITROGEN 15 MG/DL (7-18); CALCIUM LEVEL 11.5 MG/DL (8.5-10.1); CARBON DIOXIDE LEVEL 32 MEQ/L (21-32); CHLORIDE LEVEL 100 MEQ/L (98-107); CREATININE FOR GFR 0.87 MG/DL (0.55-1.30); GLOMERULAR FILTRATION RATE > 60.0 (>51); GLUCOSE, FASTING 154 MG/DL (70-100); POTASSIUM SERUM 3.7 MEQ/L (3.5-5.1); SODIUM LEVEL 140 MEQ/L (136-145); TOTAL PROTEIN 7.3 GM/DL (6.4-8.2)
[2022-05-13 15:58] LABS: HEMOGLOBIN A1c 6.8 %
[2022-05-14 15:50] LABS: PTH INTACT < 6.3 PG/ML (18.5-88.0)
== END ==
LOC: M SFHCCLAY 10:03
PROVIDERS: ATTEND Family Medicine
DX: E11.9 Type 2 diabetes mellitus without complications (principal); E83.52 Hypercalcemia

== ENCOUNTER → 2022-05-14 | Outpatient (REF) | payer OTHER | LOC: M SFHCCLAY 07:30 | PROVIDERS: ATTEND Family Medicine | DX: Z53.9 Procedure and treatment not carried out, unspecified reason (principal) ==

== ENCOUNTER → 2022-05-15 | Outpatient (CLI) | payer OTHER ==
[2022-05-15 12:16] LABS: PTH INTACT 6.8 PG/ML (18.5-88.0)
== END ==
LOC: M LAB 10:45
PROVIDERS: ATTEND Family Medicine
DX: E83.52 Hypercalcemia (principal)

== ENCOUNTER → 2022-08-05 | Outpatient (REF) | payer OTHER ==
[~2022-08-05] MED LIST changes: +METR0.7526 TOP; -METR0.7533 TOP
[2022-08-05 12:57] LABS: BLOOD UREA NITROGEN 17 MG/DL (7-18); CALCIUM LEVEL 9.8 MG/DL (8.5-10.1); CARBON DIOXIDE LEVEL 30 MEQ/L (21-32); CHLORIDE LEVEL 99 MEQ/L (98-107); CREATININE FOR GFR 0.95 MG/DL (0.55-1.30); GLOMERULAR FILTRATION RATE > 60.0 (>51); GLUCOSE, FASTING 212 MG/DL (70-100); POTASSIUM SERUM 3.6 MEQ/L (3.5-5.1); SODIUM LEVEL 136 MEQ/L (136-145)
== END ==
LOC: M SFHCCLAY 09:14
PROVIDERS: ATTEND Family Medicine
DX: E83.52 Hypercalcemia (principal)

== ENCOUNTER → 2022-11-13 | Outpatient (REF) | payer OTHER ==
[2022-11-13 11:49] LABS: BLOOD UREA NITROGEN 22 MG/DL (9-23); CARBON DIOXIDE LEVEL 31 MMOL/L (20-31); CHLORIDE LEVEL 99 MMOL/L (98-107); CREATININE FOR GFR 0.78 MG/DL (0.55-1.30); GLOMERULAR FILTRATION RATE > 60.0 (>51); GLUCOSE, FASTING 276 MG/DL (60-100); POTASSIUM SERUM 3.8 MMOL/L (3.5-5.1); SODIUM LEVEL 138 MMOL/L (136-145)
[2022-11-13 12:20] LABS: HEMOGLOBIN A1c 7.5 % (4.0-6.0)
== END ==
LOC: M SFHCCLAY 07:31
PROVIDERS: ATTEND Family Medicine
DX: Z23 Encounter for immunization (principal); E11.9 Type 2 diabetes mellitus without complications

== ENCOUNTER → 2022-12-02 | Outpatient (CLI) | payer OTHER | LOC: M WHC 08:18 | PROVIDERS: ATTEND Specialist | DX: Z12.31 Encounter for screening mammogram for malignant neoplasm of breast (principal) ==

== ENCOUNTER → 2023-02-19 | Outpatient (REF) | payer OTHER ==
[2023-02-19 12:56] LABS: ALBUMIN 4.3 G/DL (3.2-5.2); ALKALINE PHOSPHATASE 60 U/L (46-116); ALT/SGPT 26 U/L (7.0-40); AST/SGOT 17 U/L (<34); BILIRUBIN,TOTAL 0.8 MG/DL (0.3-1.2); BLOOD UREA NITROGEN 21 MG/DL (9-23); CALCIUM LEVEL 9.6 MG/DL (8.5-10.1); CARBON DIOXIDE LEVEL 31 MMOL/L (20-31); CHLORIDE LEVEL 101 MMOL/L (98-107); CREATININE FOR GFR 0.84 MG/DL (0.55-1.30); GLOMERULAR FILTRATION RATE > 60.0 (>51); GLUCOSE, FASTING 103 MG/DL (60-100); POTASSIUM SERUM 3.8 MMOL/L (3.5-5.1); SODIUM LEVEL 137 MMOL/L (136-145); TOTAL PROTEIN 6.7 G/DL (5.7-8.2)
[2023-02-19 13:04] LABS: HEMOGLOBIN A1c 5.6 % (4.0-6.0)
== END ==
LOC: M SFHCCLAY 07:47
PROVIDERS: ATTEND Family Medicine
DX: E11.9 Type 2 diabetes mellitus without complications (principal); Z23 Encounter for immunization

== ENCOUNTER → 2023-05-15 | Outpatient (REF) | payer OTHER ==
[2023-05-15 11:52] LABS: BLOOD UREA NITROGEN 21 MG/DL (9-23); CALCIUM LEVEL 8.9 MG/DL (8.5-10.1); CARBON DIOXIDE LEVEL 32 MMOL/L (20-31); CHLORIDE LEVEL 103 MMOL/L (98-107); CHOLESTEROL LEVEL 123 MG/DL (<200); CHOLESTEROL RISK RATIO 2.72 (<5); CREATININE FOR GFR 0.75 MG/DL (0.55-1.30); GLOMERULAR FILTRATION RATE > 60.0 (>51); GLUCOSE, FASTING 89 MG/DL (60-100); HDL CHOLESTEROL 45.1 MG/DL (>40); LDL CHOLESTEROL 62.7 MG/DL (<100); NON-HDL-C 77.9 MG/DL; POTASSIUM SERUM 3.9 MMOL/L (3.5-5.1); SODIUM LEVEL 141 MMOL/L (136-145); TRIGLYCERIDES LEVEL 76 MG/DL (<150)
[2023-05-15 12:02] LABS: HEMOGLOBIN A1c 5.1 % (4.0-6.0)
== END ==
LOC: M SFHCCLAY 09:04
PROVIDERS: ATTEND Family Medicine
DX: I10 Essential (primary) hypertension (principal); E11.9 Type 2 diabetes mellitus without complications; E78.5 Hyperlipidemia, unspecified

== ENCOUNTER → 2023-09-16 | Outpatient (REF) | payer OTHER ==
[2023-09-16 14:31] LABS: CREATININE, URINE 118.1 MG/DL; MAU/CREAT RATIO 3.3 MCG/MG (0.0-30.0)
[2023-09-16 14:39] LABS: BLOOD UREA NITROGEN 20 MG/DL (9-23); CALCIUM LEVEL 9.1 MG/DL (8.3-10.6); CARBON DIOXIDE LEVEL 30 MMOL/L (20-31); CHLORIDE LEVEL 104 MMOL/L (98-107); CREATININE FOR GFR 0.75 MG/DL (0.55-1.30); GLOMERULAR FILTRATION RATE > 60.0 (>45); GLUCOSE, FASTING 88 MG/DL (74-106); POTASSIUM SERUM 4.1 MMOL/L (3.5-5.1); SODIUM LEVEL 140 MMOL/L (136-145)
== END ==
LOC: M SFHCCLAY 07:31
PROVIDERS: ATTEND Family Medicine
DX: E11.9 Type 2 diabetes mellitus without complications (principal); E78.5 Hyperlipidemia, unspecified; I10 Essential (primary) hypertension

== ENCOUNTER → 2024-01-19 | Outpatient (REF) | payer OTHER ==
[2024-01-19 18:02] LABS: CREATININE, URINE 25.9 MG/DL; MALB URINE SIEMENS < 3.0 MG/L; MAU/CREAT RATIO 11.5 MCG/MG (0.0-30.0)
[2024-01-19 18:06] LABS: ALKALINE PHOSPHATASE 70 U/L (46-116); ALT/SGPT 38 U/L (7.0-40); AST/SGOT 20 U/L (<34); BILIRUBIN,TOTAL 0.4 MG/DL (0.3-1.2); BLOOD UREA NITROGEN 18 MG/DL (9-23); CALCIUM LEVEL 9.7 MG/DL (8.3-10.6); CARBON DIOXIDE LEVEL 31 MMOL/L (20-31); CHLORIDE LEVEL 102 MMOL/L (98-107); CREATININE FOR GFR 0.92 MG/DL (0.55-1.30); GLOMERULAR FILTRATION RATE > 60.0 (>45); GLUCOSE, FASTING 107 MG/DL (74-106); POTASSIUM SERUM 5.1 MMOL/L (3.5-5.1); SODIUM LEVEL 139 MMOL/L (136-145); TOTAL PROTEIN 6.3 G/DL (5.7-8.2)
== END ==
LOC: M SFHCCLAY 09:22
PROVIDERS: ATTEND Family Medicine
DX: E11.9 Type 2 diabetes mellitus without complications (principal); E78.5 Hyperlipidemia, unspecified

== ENCOUNTER → 2024-01-19 | Outpatient (CLI) | payer OTHER | LOC: M WHC 11:11 | PROVIDERS: ATTEND Specialist | DX: Z12.31 Encounter for screening mammogram for malignant neoplasm of breast (principal) ==

== ENCOUNTER → 2024-01-21 | Outpatient (REF) | payer OTHER ==
[2024-01-21 13:19] LABS: BLOOD UREA NITROGEN 18 MG/DL (9-23); CALCIUM LEVEL 9.2 MG/DL (8.3-10.6); CARBON DIOXIDE LEVEL 32 MMOL/L (20-31); CHLORIDE LEVEL 102 MMOL/L (98-107); CHOLESTEROL LEVEL 141 MG/DL (<200); CHOLESTEROL RISK RATIO 2.78 (<5); CREATININE FOR GFR 0.81 MG/DL (0.55-1.30); GLOMERULAR FILTRATION RATE > 60.0 (>45); GLUCOSE, FASTING 86 MG/DL (74-106); HDL CHOLESTEROL 50.7 MG/DL (>40); LDL CHOLESTEROL 73.9 MG/DL (<100); NON-HDL-C 90.3 MG/DL; POTASSIUM SERUM 4.3 MMOL/L (3.5-5.1); SODIUM LEVEL 140 MMOL/L (136-145); TRIGLYCERIDES LEVEL 82 MG/DL (<150)
[2024-01-21 13:21] LABS: FREE T3 3.3 PG/ML (2.3-4.2); FREE T4 1.09 NG/DL (0.89-1.76)
== END ==
LOC: M SFHCCLAY 09:04
PROVIDERS: ATTEND Family Medicine
DX: E11.9 Type 2 diabetes mellitus without complications (principal); L68.0 Hirsutism

== ENCOUNTER → 2024-01-22 | Outpatient (CLI) | payer OTHER ==
[~2024-01-22] MED LIST changes: +TIRZ5PEN
== END ==
LOC: M WHC 09:17
PROVIDERS: ATTEND Family Medicine
DX: R92.8 Other abnormal and inconclusive findings on diagnostic imaging of breast (principal); Z53.9 Procedure and treatment not carried out, unspecified reason

== ENCOUNTER 2024-01-26 09:19 | Emergency (ER) | payer OTHER ==
[~2024-01-26] VITALS: Ht 154.9 cm; Wt 63.5 kg
[~2024-01-26 09:19] MED LIST changes: -TIRZ5PEN
[2024-01-26 10:13] LABS: BASO # 0.1 10^3/uL (0.0-0.2); BASO % 1.2 % (0.0-1.0); EOS # 0.1 10^3/uL (0.0-0.5); EOS % 2.1 % (0.0-3.0); HEMATOCRIT 43.4 % (36.0-47.0); HEMOGLOBIN 14.7 g/dl (12.0-15.5); LYMPH # 1.1 10^3/uL (1.5-5.0); MEAN CORPUSCULAR HEMOGLOBIN 30.3 pg (27.0-33.0); MEAN CORPUSCULAR HGB CONC 33.9 g/dl (32.0-36.5); MEAN CORPUSCULAR VOLUME 89.5 fl (80.0-96.0); MONO # 0.3 10^3/uL (0.0-0.8); MONO % 5.2 % (2.0-8.0); NEUTROPHILS # 3.6 10^3/uL (1.5-8.5); NEUTROPHILS % 69.3 % (36.0-66.0); PLATELET COUNT, AUTOMATED 235 10^3/uL (150-450); RED BLOOD COUNT 4.85 10^6/uL (4.00-5.40); WHITE BLOOD COUNT 5.2 10^3/uL (4.0-10.0)
[2024-01-26] MEDS: ASPIRIN 81MG CHEW TABLET PO ONE (10:13)
[2024-01-26] MEDS: MORPHINE 2 MG/ML 1ML VIAL IV PRN (10:14)
[2024-01-26] MEDS: ONDANSETRON 4MG 2ML VIAL IV ONE (10:14)
[2024-01-26] MEDS ORDERED: ISOVUE-370 76% 100ML VIAL As Ordered ONE (10:22)
[2024-01-26 10:29] LABS: INR 0.93; PARTIAL THROMBOPLASTIN TIME 29.4 SECONDS (24.8-34.2); PROTHROMBIN TIME 12.2 SECONDS (12.5-14.5)
[2024-01-26] MEDS ORDERED: TIRZ5PEN (10:34)
[2024-01-26 10:36] LABS: LIPASE 41 U/L (12-53)
[2024-01-26 10:38] LABS: ALBUMIN 4.2 G/DL (3.2-5.2); ALKALINE PHOSPHATASE 63 U/L (46-116); ALT/SGPT 37 U/L (7.0-40); AST/SGOT 22 U/L (<34); BILIRUBIN,DIRECT 0.2 MG/DL (<0.4); BILIRUBIN,TOTAL 0.8 MG/DL (0.3-1.2); BLOOD UREA NITROGEN 18 MG/DL (9-23); CALCIUM LEVEL 9.2 MG/DL (8.3-10.6); CARBON DIOXIDE LEVEL 27 MMOL/L (20-31); CHLORIDE LEVEL 103 MMOL/L (98-107); CK-MB VALUE MASS 2.6 NG/ML (<3.6); CREATININE FOR GFR 0.78 MG/DL (0.55-1.30); GLOMERULAR FILTRATION RATE > 60.0 (>45); GLUCOSE, FASTING 118 MG/DL (74-106); SODIUM LEVEL 139 MMOL/L (136-145); TOTAL PROTEIN 6.7 G/DL (5.7-8.2)
[2024-01-26 10:39] LABS: THYROID STIMULATING HORMONE 1.917 uIU/ML (0.55-4.78)
[2024-01-26 10:40] LABS: FREE T4 1.18 NG/DL (0.89-1.76)
[2024-01-26 10:44] LABS: CPK CREATINE PHOSPHOKINASE 158 U/L (34-145); MB/CK RELATIVE INDEX 1.64 (< OR =4)
[2024-01-26] MEDS: KETOROLAC 30 MG/ML 1ML VIAL IV ONE (11:15)
[2024-01-26 11:39] LABS: CPK CREATINE PHOSPHOKINASE 146 U/L (34-145); MB/CK RELATIVE INDEX 1.36 (< OR =4)
[2024-01-26 12:30] VITALS: BP 140/68; TEMP 98.2; O2SAT 96
== END 2024-01-26 12:45 | disposition home or self-care (01) ==
LOC: M ED 09:19
DX: R07.9 Chest pain, unspecified (principal); R00.0 Tachycardia, unspecified; E11.9 Type 2 diabetes mellitus without complications; I10 Essential (primary) hypertension; E78.5 Hyperlipidemia, unspecified; Z87.891 Personal history of nicotine dependence; F10.10 Alcohol abuse, uncomplicated; Z79.899 Other long term (current) drug therapy
CPT/HCPCS: 71045; 71275; 80047; 80048; 80076; 82550; 82553; 83690; 83880; 84439; 84443; 84484; 85025; 85610; 85730; 93005; 93041; 94760; 96374; 99285; J2405; Q9967

== ENCOUNTER → 2024-02-03 | Outpatient (CLI) | payer OTHER ==
[~2024-02-03] MED LIST changes: +TIRZ5PEN
== END ==
LOC: M WHC 13:31
PROVIDERS: ATTEND Specialist
DX: R92.8 Other abnormal and inconclusive findings on diagnostic imaging of breast (principal)

== ENCOUNTER → 2024-05-26 | Outpatient (REF) | payer OTHER ==
[2024-05-26 12:21] LABS: BLOOD UREA NITROGEN 23 MG/DL (9-23); CALCIUM LEVEL 8.7 MG/DL (8.3-10.6); CARBON DIOXIDE LEVEL 30 MMOL/L (20-31); CHLORIDE LEVEL 107 MMOL/L (98-107); CHOLESTEROL LEVEL 132 MG/DL (<200); CHOLESTEROL RISK RATIO 2.88 (<5); CREATININE FOR GFR 0.79 MG/DL (0.55-1.30); GLOMERULAR FILTRATION RATE > 60.0 (>45); GLUCOSE, FASTING 105 MG/DL (74-106); HDL CHOLESTEROL 45.8 MG/DL (>40); LDL CHOLESTEROL 68.8 MG/DL (<100); NON-HDL-C 86.2 MG/DL; POTASSIUM SERUM 4.3 MMOL/L (3.5-5.1); SODIUM LEVEL 139 MMOL/L (136-145); TRIGLYCERIDES LEVEL 87 MG/DL (<150)
[2024-05-26 12:48] LABS: HEMOGLOBIN A1c 5.1 % (4.0-6.0)
== END ==
LOC: M SFHCCLAY 07:11
PROVIDERS: ATTEND Family Medicine
DX: E11.9 Type 2 diabetes mellitus without complications (principal)

== ENCOUNTER → 2024-08-31 | Outpatient (REF) | payer OTHER ==
[2024-08-31 17:57] LABS: HEMOGLOBIN A1c 5.2 % (4.0-6.0)
== END ==
LOC: M SFHCCLAY 10:01
PROVIDERS: ATTEND Family Medicine
DX: E11.9 Type 2 diabetes mellitus without complications (principal)